=== PATIENT | female | born 1980 | race Hispanic/Latino ===

== ENCOUNTER 2017-09-05 20:56 | Emergency (ER) | payer SELFPAY ==
[~2017-09-05 20:56] MED LIST: ISOVUE-370 76%-LOCM 1 ML ONE
[2017-09-05] MEDS ORDERED: Ondansetron HCl/PF 4 MG/2 ML Vial ONE ×2 (22:41)
--- NOTE | 2017-09-05 23:18 | RAD ---
CHEST TWO VIEWS 09/05/17 HISTORY: Cough. Fever. Sore throat. COMPARISON: None. FINDINGS: Normal cardiac silhouette. Pulmonary vessels and hilum are normal. costophrenic angles are clear. No masses or consolidation. No pneumothorax. Old right rib fractures. IMPRESSION: No acute cardiopulmonary process. POS: [facility]
[2017-09-05 23:25] LABS: ALT (SGPT) 125 U/L (8-55); AST (SGOT) 158 U/L (5-34); Albumin 4.2 g/dL (3.5-5.0); Alkaline Phosphatase 95 U/L (40-150); Anion Gap 19 mmol/L (10-20); BUN (Urea Nitrogen) 9 mg/dL (7.0-18.7); Bilirubin, Total 0.7 mg/dL (0.2-1.2); CK (CPK) 26 U/L (29-168); Calc. Creatinine Clearance 0 mL/min (70-130); Calcium 9.6 mg/dL (7.8-10.44); Carbon Dioxide 23 mmol/L (22-29); Chloride 97 mmol/L (98-107); Estimated GFR-MDRD 81; Globulin 3.8 g/dL (2.4-3.5); Glucose 115 mg/dL (70-105); Lipase 21 U/L (8-78); Potassium 3.8 mmol/L (3.5-5.1); Sodium 135 mmol/L (136-145)
[2017-09-05 23:28] LABS: #Eosinphils 0.1 thou/uL (0.0-0.7); #Lymphocytes 1.8 thou/uL (1.20-3.40); #Monocytes 0.4 thou/uL (0.11-0.59); #Neutrophils 2.6 thou/uL (1.40-6.50); %Basophils 0.5 % (0.0-1.0); %Eosinophils 2.1 % (0.0-10.0); %Lymphocytes 36.1 % (21.0-51.0); %Monocytes 8.6 % (0.0-10.0); %Neutrophils 52.7 % (42.0-75.0); BHCG - Serum Negative (NEGATIVE); Hemoglobin 16.3 g/dL (12.0-16.0); Mean Corpuscular HGB CONC 35.3 g/dL (32.0-36.0); Mean Corpuscular Hemoglobin 36.1 pg (27.0-31.0); Mean Platelet Volume 6.1 fL (7.4-10.4); Platelet Count 249 thou/uL (130-400); Pregs Control Background? CLEAR/WHITE (CLR/WHITE); Pregs Control Bar Appear? YES (CONTROL BAR); RBC Distribution Width 15.1 % (11.5-14.5); Red Blood Cell (RBC) Count 4.51 mill/uL (4.20-5.40); White Blood Cell (WBC) Count 4.9 thou/uL (4.8-10.8)
--- NOTE | 2017-09-06 00:08 | CT ---
EXAM: ABDOMEN CT WITH CONTRAST PELVIC CT WITH CONTRAST 09/05/17 HISTORY: Two weeks of nausea and vomiting. COMPARISON: None. TECHNIQUE: Abdomen and pelvic CT is performed with IV contrast. Enteric contrast was not administered. Coronal r eformatted images are submitted for interpretation. FINDINGS: ABDOMEN CT: Lung bases are clear. Heart size is normal. No pericardial effusion. The descending thoracic aorta an d abdominal aorta have a normal caliber. No periaortic fat stranding. There is an air fluid level adjacent to the gastric cardia measuring 2.9 x 2.5 cm. The adjacent fat d oes not have any induration. A small gastric diverticulum with an air fluid level is favored. Intra and extrahepatic portal vein is patent. Gallbladder is unremarkable. Diffuse hypoattenuation of the liver due to hepatic steatosis. There are no hepatic masses. The spleen, pancreas, and adrenal glands have appropriate enhancement. No gastrohepatic, retrocrural or periportal lymphadenopathy. Gallbladder is unremarkable. No mesenteric mass, lymphadenopathy, free air or free fluid. Hypodensity in the right kidney has an a ttenuation coefficient of 14 Hounsfield units and is likely a simple 1.2 cm cyst. Bilaterally, no obs tructive uropathy. Limited evaluation of the alimentary canal due to lack of oral contrast. Unremarkable gastric mucosa and duodenum. Multiple normal caliber small bowel loops. There is some mild mucosal prominence involv ing multiple proximal jejunal loops. Distal small bowel loops are decompressed. There is fatty infilt ration of the right hemicolon. Normal caliber appendix is noted. No evidence of colonic obstruction. There is short segment narrowing of the proximal sigmoid colon likely representing focal contraction. An apple core lesion cannot be completely excluded. Nonemergent colonoscopy. IMPRESSION: 1. Hepatic steatosis. 2. Right renal cyst. 3. No evidence of obstructive uropathy. 4. No evidence of bowel obstruction. 5. Mild mucosal prominence involving proximal jejunal loops. Correlate for possible enteritis. 6. Normal caliber appendix. 7. Nonspecific fatty infiltration of the right colon mucosa. 8. Questionable apple core lesion in the proximal sigmoid colon. POS: [facility]
== END 2017-09-06 01:04 | disposition home or self-care (01) ==
LOC: ERS 20:56
DX: K52.9 Noninfective gastroenteritis and colitis, unspecified (principal); F41.9 Anxiety disorder, unspecified; F31.9 Bipolar disorder, unspecified; F17.210 Nicotine dependence, cigarettes, uncomplicated
CPT/HCPCS: 71046; 74177; 80053; 82550; 83690; 84703; 85025; 87081; 87430; 87804; 96361; 96374; J2405

== ENCOUNTER 2017-09-23 05:38 | Emergency (ER) | payer SELFPAY ==
--- NOTE | 2017-09-23 07:50 | RAD ---
EXAM: CHEST 2 VIEWS: COMPARISON: 09/06/17. HISTORY: Cough. FINDINGS: Normal cardiac silhouette. The pulmonary vessels and hilum are normal. Costophrenic angles are drew r. No mass. No consolidation. No pneumothorax or osseous abnormalities. IMPRESSION: No acute cardiopulmonary process. POS: [facility]
== END 2017-09-23 06:42 | disposition home or self-care (01) ==
LOC: ERS 05:38
DX: J02.9 Acute pharyngitis, unspecified (principal); R05 Cough; F31.9 Bipolar disorder, unspecified; F41.9 Anxiety disorder, unspecified; F17.210 Nicotine dependence, cigarettes, uncomplicated
CPT/HCPCS: 71046; 87081; 87430; 99406

== ENCOUNTER 2017-12-01 10:33 | Inpatient (IN) | payer SELFPAY ==
[2017-12-01 11:07] LABS: #Monocytes 0.5 thou/uL (0.11-0.59); #Neutrophils 6.7 thou/uL (1.40-6.50); %Basophils 0.5 % (0.0-1.0); %Eosinophils 0.6 % (0.0-10.0); %Lymphocytes 11.8 % (21.0-51.0); %Monocytes 5.8 % (0.0-10.0); %Neutrophils 81.3 % (42.0-75.0); Hemoglobin 16.9 g/dL (12.0-16.0); Mean Corpuscular HGB CONC 34.7 g/dL (32.0-36.0); Mean Corpuscular Hemoglobin 35.5 pg (27.0-31.0); Mean Platelet Volume 6.7 fL (7.4-10.4); Platelet Count 200 thou/uL (130-400); RBC Distribution Width 12.1 % (11.5-14.5); Red Blood Cell (RBC) Count 4.75 mill/uL (4.20-5.40); White Blood Cell (WBC) Count 8.3 thou/uL (4.8-10.8)
[2017-12-01 11:23] LABS: ALT (SGPT) 86 U/L (8-55); AST (SGOT) 113 U/L (5-34); Alkaline Phosphatase 76 U/L (40-150); Anion Gap 17 mmol/L (10-20); BUN (Urea Nitrogen) 10 mg/dL (7.0-18.7); Bilirubin, Total 1.4 mg/dL (0.2-1.2); CK (CPK) 362 U/L (29-168); Calc. Creatinine Clearance 0 mL/min (70-130); Carbon Dioxide 26 mmol/L (22-29); Chloride 86 mmol/L (98-107); Estimated GFR-MDRD 90; Globulin 3.1 g/dL (2.4-3.5); Glucose 134 mg/dL (70-105); Lipase 11 U/L (8-78); Protein, Total 7.1 g/dL (6.0-8.3); Sodium 126 mmol/L (136-145)
[2017-12-01 11:25] LABS: Troponin I Less than 0.010 ng/mL (< 0.028)
[2017-12-01 11:27] LABS: Potassium 2.8 mmol/L (3.5-5.1)
[2017-12-01 11:32] LABS: CKMB 6.7 ng/mL (0-6.6)
[2017-12-01] MEDS ORDERED: Potassium Chloride 40 MEQ in Sodium Chloride 0.9% 500 ML IVPB ONE (11:45)
[2017-12-01] MEDS ORDERED: Ondansetron HCl/PF 4 MG/2 ML Vial ONE (12:04)
--- NOTE | 2017-12-01 12:12 | RAD ---
CHEST 1 VIEW: HISTORY: Chest pain. COMPARISON: Chest radiograph 09/23/17. FINDINGS: Lungs are clear. No pneumothorax or effusion. Cardiac silhouette and mediastinal contours are withi n normal limits. No acute osseous abnormality. Nodular density in the left lung apex is similar, li kina a granuloma. IMPRESSION: No acute intrathoracic abnormality. POS: [facility]
--- NOTE | 2017-12-01 12:31 | CT ---
CT BRAIN WITHOUT CONTRAST: HISTORY: Double vision. Altered mental status. COMPARISON: None. FINDINGS: No acute territorial infarct or hemorrhage. No midline shift or mass effect. Ventricular size and e xtraaxial CSF spaces are normal. There is cortical thinning of the calvarium. IMPRESSION: 1. No acute intracranial abnormality. 2. Intracortical bone resorption of the calvarium can be seen with multiple metabolic abnormalities, the most common is hyperparathyroidism. Clinical correlation is advised. POS: [facility]
[2017-12-01 14:46] LABS: Acetaminophen Less than 6.0 mcg/mL (10.0-30.0); Alcohol Less than 10 mg/dL (Less than 10); Salicylate Less than 8.0 mg/dL (15.0-30.0)
[2017-12-01 15:29] LABS: Troponin I Less than 0.010 ng/mL (< 0.028)
[2017-12-01 15:39] LABS: Thyroid Stimulating Hormone 0.77 uIU/mL (0.35-4.94)
[2017-12-01 16:34] LABS: Bilirubin Negative (Negative); Blood, Urine Negative (Negative); Clarity CLEAR (Clear); Glucose, Urine (Dipstick) Negative (Negative); Leukocyte Moderate (Negative); Nitrite Positive (Negative); Protein, Urine (Dipstick) Negative (Neg-Trace); Specific Gravity, Urine 1.008 (1.002-1.036)
[2017-12-01 16:37] LABS: Pathc Cast-AUWi Flag 0.43 (0-2.49)
[2017-12-01 16:40] LABS: Pregnancy Test - Urine (BHCG) Negative (Negative); Pregu Control Background? CLEAR/WHITE (CLR/WHITE); Pregu Control Bar Appear? YES (CONTROL BAR); Specific Gravity 1.008 (1.002-1.036)
--- NOTE | 2017-12-01 16:50 | PDOC.PN ---
- Subjective Encounter Start Date: 12/01/17 Encounter Start Time: 16:48 Patient seen and examined. Note dictated. - Objective MAR Reviewed: Yes Result Diagrams: 12/01/17 10:57 12/01/17 10:57 Radiology Reviewed by me: Yes (CXR - no infiltrate/edema) EKG Reviewed by me: Yes (ST) Phys Exam - Physical Examination Constitutional: NAD (Anxious) HEENT: PERRLA, moist MMs, sclera anicteric, oral pharynx no lesions Neck: no nodes, no JVD, supple, full ROM Respiratory: no wheezing, no rales, no rhonchi, clear to auscultation bilateral Cardiovascular: RRR, no rub no murmur/rubs/gallops Gastrointestinal: soft, non-tender, no distention, positive bowel sounds mild RUQ tenderness, no rebound/guarding Musculoskeletal: no edema, pulses present Neurological: non-focal, normal sensation, moves all 4 limbs Psychiatric: normal affect, A&O x 3 Skin: no rash Dx/Plan - Plan * Dictated Review of Systems - Review of Systems Constitutional: weakness. negative: fever, chills, sweats, malaise, other Eyes: negative: Pain, Vision Change, Conjunctivae Inflammation, Eyelid Inflammation, Redness, Other ENT: negative: Ear Pain, Ear Discharge, Nose Pain, Nose Discharge, Nose Congestion, Mouth Pain, Mouth Swelling, Throat Pain, Throat Swelling, Other Respiratory: negative: Cough, Dry, Shortness of Breath, Hemoptysis, SOB with Excertion, Pleuritic Pain, Sputum, Wheezing Cardiovascular: negative: chest pain, palpitations, orthopnea, paroxysmal nocturnal dyspnea, edema, light headedness, other Gastrointestinal: Nausea, Vomiting, Diarrhea. negative: Abdominal Pain, Constipation, Melena, Hematochezia, Other Genitourinary: negative: Dysuria, Frequency, Incontinence, Hematuria, Retention , Other Musculoskeletal: negative: Neck Pain, Shoulder Pain, Arm Pain, Back Pain, Hand Pain, Leg Pain, Foot Pain, Other Skin: negative: Rash, Lesions, Jorge, Bruising, Other Neurological: negative: Weakness, Numbness, Incoordination, Change in Speech, Confusion, Seizures, Other - Medications/Allergies Allergies/Adverse Reactions: Allergies Allergy/AdvReac Type Severity Reaction Status Date / Time No Known Allergies Allergy Unverified 12/01/17 11:40
[2017-12-01 16:53] LABS: Bacteria/HPF 1+ HPF (None Seen); Hyaline Casts/LPF NONE SEEN LPF (0-3 Hyaline); RBC/HPF None Seen HPF (0-3); Squamous Epithelial 0-3 HPF (0-3); WBC/HPF None Seen HPF (0-3)
[2017-12-01] MEDS ORDERED: Milk Of Magnesia 30 ML UDCUP PO PRN (16:55)
[2017-12-01] MEDS ORDERED: Ondansetron ODT 4 MG TAB PO PRN (16:55)
[2017-12-01] MEDS ORDERED: Ondansetron HCl/PF 4 MG/2 ML Vial IVP PRN (16:55)
[2017-12-01] MEDS ORDERED: Calcium Carbonate 500 MG ChewTAB PO PRN (16:55)
[2017-12-01] MEDS ORDERED: Lorazepam 0.5 MG TAB PO PRN (16:57)
[2017-12-01] MEDS ORDERED: cloNIDine 0.1 MG TAB PO PRN (16:58)
[2017-12-01] MEDS ORDERED: Diabetic Tussin 200 MG/10 ML UDCUP PO PRN (16:58)
[2017-12-01] MEDS ORDERED: Nicotine 14 MG PATCH TD PRN (16:58)
[2017-12-01] MEDS ORDERED: Loratadine 10 MG TAB PO PRN (16:58)
[2017-12-01 17:40] LABS: Troponin I Less than 0.010 ng/mL (< 0.028)
--- NOTE | 2017-12-01 18:07 | HP ---
DATE OF ADMISSION: 12/01/2017 PRIMARY CARE PHYSICIAN: [facility]. CHIEF COMPLAINT: Nausea and vomiting. HISTORY OF PRESENT ILLNESS: Patient is a 37-year-old female with anxiety, depression, bipolar disord er, followed by [facility] presented to the emergency room with above complaints. The patient recently had eye infection from contact lens that is more or less resolved. The family n oticed that the patient has problems with equilibrium and double vision. She was seen by Ophthalmthierno peña as outpatient. Per Ophthalmology, her double vision was probably not from the contact lens infect ion. He recommended the patient to go to the emergency room. Over the last few days, patient has nausea with several episodes of vomiting. She is not able to eat or drink anything by mouth. She has been feeling generally weak. Her stools are watery. She also had some low grade fever with some right upper quadrant pain. No jaundice, dyspepsia, melena, hemato chezia reported. She denies any sick contacts or travel. In the emergency room, initial vital signs showed temperature 97.7, respiration 18, pulse rate of 122 with a blood pressure 126/83 with O2 saturation 100% on room air. EKG showed sinus tachycardia with out significant ST-T wave changes. Her workup was consistent with abnormal electrolytes. CT brain s howed intracortical bone resorption of the calvarium, which could be due to multiple metabolic abnorm alities, most commonly in hyperparathyroidism. She received 40 mEq of IV potassium, IV fluids with Z ofran in the emergency room. PAST MEDICAL HISTORY: Anxiety, depression, bipolar disorder, followed by [facility]. PAST SURGICAL HISTORY: [place] tooth removal. ALLERGIES: No known drug allergies. CURRENT HOME MEDICATIONS: The patient is on multiple psychotropic medications per [facility], she is unabl e to recall. SOCIAL HISTORY: Patient drinks 2-3 beers almost on a daily basis. She also smokes tobacco on a aren y basis. She has used cannabis in the past. FAMILY HISTORY: Negative for heart disease. REVIEW OF SYSTEMS: Please refer to my progress note. PHYSICAL EXAMINATION: Please refer to my progress note. LABORATORY FINDINGS: Please refer to my progress note. IMPRESSION: 1. Generalized weakness, multifactorial. 2. Nausea with vomiting and diarrhea, probably secondary to infectious gastroenteritis, rule out [place] stridium difficile. 3. Electrolyte imbalance. The patient has hyponatremia, hypophosphatemia, and hypochloremia. 4. Dehydration. 5. Chronic alcoholism. 6. Ongoing tobacco abuse. 7. Anxiety, depression, bipolar disorder. 8. 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 PLAN: The patient will be monitored on the telemetry unit due to electrolyte abnormalities. Stool w orkup will be sent. We will continue IV fluids. Urine drug screen is pending. We will check urine and serum osmolality. Urine test. We will monitor labs closely. Consult Nephrology, Dr. Robbins in a.m. Check vitamin B12 and folic acid due to macrocytosis. We will check TSH, cortisol, ammo cyndi, phosphorus and magnesium as well. We will consult physical therapy due to equilibrium problem. Plan of care was discussed with the patient and the family at the bedside. They stated understanding . The patient will require 2-3 days for stabilization.
--- NOTE | 2017-12-01 18:39 | ULT ---
RIGHT UPPER QUADRANT ULTRASOUND: Indication: Abdominal pain, nausea, vomiting. FINDINGS: There is prominent fatty infiltration of the liver. No gallbladder sludge or stones are evident. No s onographic Carrera sign is reported. No gallbladder wall thickening is evident. Common bile duct measu res 2.0 mm. Visualized aspects of the pancreas are unremarkable. Right kidney measures 9.5 x 4.5 cm. There is a 1.5 cm cyst involving the right mid kidney. IMPRESSION: 1. Prominent fatty infiltration of the liver. 2. Right renal cyst. POS: [facility]
[2017-12-01] MEDS ORDERED: Ergocalciferol 1.25 MG(50,000 UNITS) CAP PO SCH (21:00)
[2017-12-01] MEDS: NS 0.9% w/ 40 MEQ KCL 1,000 ML IV SCH (22:30)
[2017-12-01] MEDS: Folic Acid 1 MG TAB PO SCH (22:31)
[2017-12-01] MEDS: Acetaminophen 325 MG TAB PO PRN (22:42)
--- NOTE | 2017-12-01 23:42 | CON ---
DATE OF CONSULTATION: 12/01/2017 CONSULTING PHYSICIAN: Dr. Galvin. REQUESTING PHYSICIAN: Dr. Hoffmann. REASON FOR CONSULTATION: Electrolyte derangement, possibility of primary hyperparathyroidism. IMPRESSION: Hyponatremia, hypokalemia. This is likely in the context of alcohol abuse. PLAN: 1. Sodium and urine osmolality. 2. We will lean towards IV fluid resuscitation of this patient with normal saline/banana bag. 3. I do not believe that the patient's CAT scan features have anything to do with primary hyperparat hyroidism in this patient. 4. Counseling on the need to discontinue alcohol abuse. HISTORY OF PRESENT ILLNESS: History is that of 37-year-old female patient with significant alcohol p roblem since the age of 13, who presented here with nausea and vomiting, and noted with very low sodi um, very low potassium and CAT scan, incidental finding highly suspicious for primary hyperparathyroi dism. As a result of these findings, decision has been taken to involve Ren[facility] in the management of t his case. PAST MEDICAL HISTORY: Significant for anxiety, depression, bipolar disorder. ALLERGIES: No known drug allergy. MEDICATIONS: Reviewed mellitus psychotropic medications. SOCIAL HISTORY: Significant for alcohol abuse for many years now. FAMILY HISTORY: Not significantly related to presenting illness. REVIEW OF SYSTEMS: As documented in the body of the history. All the other systems reviewed were fo und not to be significantly related to presenting illness. PHYSICAL EXAMINATION: GENERAL: The patient was found to be ill looking, hemodynamically stable. VITAL SIGNS: Afebrile. HEENT: Unremarkable. CARDIOVASCULAR: First and second heart sounds were heard. RESPIRATORY: Clear to auscultation. DIGESTIVE SYSTEM: Benign abdomen, but showed right upper quadrant tenderness. EXTREMITIES: No peripheral edema. SKIN: No new gross rash. LYMPHATICS: No peripheral lymphadenopathy. SUMMARY: A 37-year-old female patient with significant alcohol abuse problem who presented here with significant electrolyte derangements. Thank you for this consultation. We will follow with you.
[2017-12-02] MEDS: Acetaminophen 325 MG TAB PO PRN ×4 (05:21→20:34)
[2017-12-02 05:36] LABS: Albumin 3.1 g/dL (3.5-5.0); Anion Gap 13 mmol/L (10-20); BUN (Urea Nitrogen) 7 mg/dL (7.0-18.7); BUN/Creatinine Ratio 11.67; Calc. Creatinine Clearance 113 mL/min (70-130); Calcium 8.6 mg/dL (7.8-10.44); Carbon Dioxide 22 mmol/L (22-29); Chloride 99 mmol/L (98-107); Estimated GFR-MDRD Greater than 90; Glucose 89 mg/dL (70-105); Phosphorus 3.1 mg/dL (2.3-4.7); Potassium 3.8 mmol/L (3.5-5.1); Sodium 130 mmol/L (136-145)
[2017-12-02 06:04] LABS: Folate (Folic Acid) 12.6 ng/mL (7.0-31.4)
[2017-12-02 08:19] VITALS: BMI 23.1
[2017-12-02] MEDS ORDERED: Cyanocobalamin (Vitamin B-12) 1,000 MCG TAB PO SCH (09:00)
[2017-12-02] MEDS: Cholecalciferol (Vitamin D3) 400 UNITS TAB PO SCH (09:11)
[2017-12-02] MEDS: NS 0.9% w/ 40 MEQ KCL 1,000 ML IV SCH ×3 (09:11→17:49)
[2017-12-02] MEDS: pyridOXINE 50 MG (B6) TAB PO SCH (09:11)
[2017-12-02] MEDS: Calcium Carbonate + Vit D 1 TAB PO SCH ×2 (09:12→14:29)
[2017-12-02] MEDS: Multivit, Therapeutic 1 TAB PO SCH (09:12)
[2017-12-02] MEDS: Folic Acid 1 MG TAB PO SCH (20:33)
--- NOTE | 2017-12-02 21:29 | PDOC.PN ---
- Subjective Encounter Start Date: 12/02/17 Encounter Start Time: 09:00 Patient seen and examined. No new complaints. No overnight events. Feels somewhat better. - Objective Resuscitation Status: Resuscitation Status FULL:Full Resuscitation MAR Reviewed: Yes Vital Signs & Weight: Vital Signs (12 hours) Temp Pulse Resp BP BP BP 12/02/17 20:00 98.2 F 102 H 18 130/84 12/02/17 16:00 98.5 F 86 18 136/88 12/02/17 11:40 98.2 F 84 18 131/87 12/02/17 10:43 97.9 F 78 18 123/78 12/02/17 10:11 105/73 Weight Admit Weight 125 lb 12.8 oz Weight 126 lb 3.2 oz I&O: 12/01/17 12/02/17 12/03/17 06:59 06:59 06:59 Intake Total 720 1722 Balance 720 1722 Result Diagrams: 12/01/17 10:57 12/03/17 03:57 Phys Exam - Physical Examination Constitutional: NAD Neck: no nodes, no JVD Respiratory: no wheezing, no rales, no rhonchi, clear to auscultation bilateral Cardiovascular: RRR, no significant murmur, no rub no heaves Gastrointestinal: soft, non-tender, no distention, positive bowel sounds Musculoskeletal: no edema Neurological: non-focal, normal sensation, moves all 4 limbs Psychiatric: normal affect, A&O x 3 Dx/Plan - Plan DVT proph w/SCDs IMPRESSION: 1. Generalized weakness, multifactorial. 2. Nausea with vomiting and diarrhea, probably secondary to infectious gastroenteritis, rule out Clostridium difficile. 3. Electrolyte imbalance. The patient has hyponatremia, hypophosphatemia, and hypochloremia. 4. Dehydration. 5. Chronic alcoholism. 6. Ongoing tobacco abuse. 7. Anxiety, depression, bipolar disorder. 8. Intracortical bone resorption of the calvarium - probably artifact. PTH level normal PLAN: * cont current IV fluids * Await PT * AM labs * DC planning probably in AM if gait stable * [facility] follow up as outpt Review of Systems - Review of Systems Respiratory: negative: Cough, Dry, Shortness of Breath, Hemoptysis, SOB with Excertion, Pleuritic Pain, Sputum, Wheezing Cardiovascular: negative: chest pain, palpitations, orthopnea, paroxysmal nocturnal dyspnea, edema, light headedness, other - Medications/Allergies Allergies/Adverse Reactions: Allergies Allergy/AdvReac Type Severity Reaction Status Date / Time No Known Allergies Allergy Verified 12/01/17 21:08 Medications: Current Medications Acetaminophen (Tylenol) 325 mg PO Q6H PRN PRN Reason: Headache/Fever or Pain Last Admin: 12/02/17 20:34 Dose: 325 mg Calcium Carbonate (Tums) 1,000 mg PO Q4H PRN PRN Reason: Heartburn or Indigestion Calcium/Vitamin D (Caltrate 600 + Vit D) 1 tab PO BID-WM [facility] Last Admin: 12/02/17 14:29 Dose: 1 tab Cholecalciferol (Vitamin D) 800 units PO DAILY [facility] Last Admin: 12/02/17 09:11 Dose: 800 units Clonidine (Catapres) 0.1 mg PO Q4H PRN PRN Reason: Systolic BP > 180 Ergocalciferol (Drisdol) 1.25 mg PO Q7DAYS [facility] Guaifenesin (Robitussin Sf) 200 mg PO Q4H PRN PRN Reason: Cough Potassium Chloride/Sodium Chloride (Ns 0.9% W/ 40 Meq Kcl) 1,000 mls @ 125 mls/ hr IV .Q8H [facility] Last Admin: 12/02/17 17:49 Dose: 1,000 mls Loratadine (Claritin) 10 mg PO DAILYPRN PRN PRN Reason: Sinus Symptoms Lorazepam (Ativan) 0.5 mg PO Q4H PRN PRN Reason: ASE >9 Magnesium Hydroxide (Milk Of Magnesium) 30 ml PO DAILYPRN PRN PRN Reason: Constipation Multivitamins (Theragran) 1 tab PO DAILY [facility] Last Admin: 12/02/17 09:12 Dose: 1 tab Nicotine (Nicoderm Patch) 14 mg TD Q24HR PRN PRN Reason: Smoking craving Ondansetron HCl (Zofran Odt) 4 mg PO Q6H PRN PRN Reason: Nausea/Vomiting Ondansetron HCl (Zofran) 4 mg IVP Q6H PRN PRN Reason: Nausea/Vomiting Pyridoxine HCl (Vitamin B 6) 50 mg PO DAILY [facility] Last Admin: 12/02/17 09:11 Dose: 50 mg Sodium Chloride (Flush - Normal Saline) 10 ml IVF Q12HR [facility] Last Admin: 12/02/17 20:07 Dose: Not Given Sodium Chloride (Flush - Normal Saline) 10 ml IVF PRN PRN PRN Reason: Saline Flush Thiamine HCl (Thiamine) 100 mg PO HS [facility] Last Admin: 12/02/17 20:33 Dose: 100 mg
[2017-12-03] MEDS: NS 0.9% w/ 40 MEQ KCL 1,000 ML IV SCH (03:52)
[2017-12-03 06:05] LABS: Anion Gap 12 mmol/L (10-20); BUN (Urea Nitrogen) 6 mg/dL (7.0-18.7); BUN/Creatinine Ratio 9.52; Calc. Creatinine Clearance 108 mL/min (70-130); Calcium 8.4 mg/dL (7.8-10.44); Carbon Dioxide 18 mmol/L (22-29); Chloride 108 mmol/L (98-107); Estimated GFR-MDRD Greater than 90; Glucose 81 mg/dL (70-105); Magnesium 1.6 mg/dL (1.6-2.6); Phosphorus 2.6 mg/dL (2.3-4.7); Potassium 4.6 mmol/L (3.5-5.1); Sodium 133 mmol/L (136-145)
[2017-12-03] MEDS: Cholecalciferol (Vitamin D3) 400 UNITS TAB PO SCH (08:08)
[2017-12-03] MEDS: Calcium Carbonate + Vit D 1 TAB PO SCH (08:08)
[2017-12-03] MEDS: Multivit, Therapeutic 1 TAB PO SCH (08:08)
[2017-12-03] MEDS: pyridOXINE 50 MG (B6) TAB PO SCH (08:08)
[2017-12-03 08:18] VITALS: BP 145/87; TEMP 98.5
--- NOTE | 2017-12-03 09:06 | PRG ---
DATE OF SERVICE: 12/02/2017 SUBJECTIVE: The patient seen and examined. OBJECTIVE: VITAL SIGNS: Afebrile with temperature 98.2, pulse 84, respiration rate 18, blood pressure 131/87. HEENT: Unremarkable. Moist oral mucosa. No conjunctival injection or icterus. NECK: Supple. CARDIOVASCULAR: First and second heart sounds were heard. RESPIRATORY: Clear to auscultation. DIGESTIVE: Revealed a benign abdomen. EXTREMITIES: No peripheral edema. SKIN: No new gross rash. LYMPHATICS: No peripheral lymphadenopathy. LABORATORY INVESTIGATIONS: Showed sodium that has improved to 130, potassium resolved, now to 3.8. IMPRESSION: Electrolyte derangements in the context of alcohol abuse. PLAN: 1. Continue supportive measures. 2. Counseling on the need to discontinue alcohol abuse.
--- NOTE | 2017-12-03 22:16 | DIS ---
DATE OF DISCHARGE: 12/03/2017 DISCHARGE DISPOSITION: Home. FOLLOWUP: 1. Follow up with primary care physician at [facility] in 1 week. 2. Follow up with Dr. Galvin as needed. ALLERGIES: No known drug allergies. DISCHARGE MEDICATIONS: 1. Calcium with vitamin D one tablet twice a day. 2. Ergocalciferol 1.25 mg every 7 days. 3. Multivitamin 1 tablet daily. Other home medications were resumed. BRIEF HOSPITAL COURSE: Patient is a 37-year-old female with anxiety, depression, bipolar disorder fo llowed by [facility] presented to the emergency room with nausea, vomiting. Please refer to the history an d physical dated 12/01/2017 for further details. The patient was admitted to the hospital with a diagnosis of generalized weakness, probably secondary to dehydration with electrolyte imbalance. The patient was found to have hyponatremia with sodium 1 26, hypokalemia with potassium 2.8. Her electrolytes have been replaced. In the emergency room, patient underwent CT scan of the brain due to gait imbalance that was negative for acute findings. There was some questionable intracortical bone resorption of the calvarium that can be seen in multiple metabolic abnormalities. Her parathyroid hormone was normal at 52.2. TSH w as normal at 0.77. Cortisol level was 22.8. Vitamin D level was 5.5. She has been started on vitam in D supplementation. Phosphorus and calcium were in normal range. Hyperparathyroidism has been rul ed out. The patient was also evaluated by nephrology, Dr. Galvin. She was extensively counseled to quit alcohol. Lifestyle modification was emphasized. FINAL DIAGNOSES: 1. Generalized weakness, multifactorial. 2. Nausea, vomiting, diarrhea resolved. Probably infectious gastroenteritis. Stool workup was orde red; however, patient did not have any bowel movement. 3. Electrolyte imbalance. The patient had hyponatremia, hypophosphatemia, and hypochloremia. 4. Dehydration. 5. Chronic alcoholism. 6. Ongoing tobacco abuse. 7. Anxiety, depression, bipolar disorder. 8. 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 PTH level was normal. Plan of care was discussed with the patient. She stated understanding. An [facility] followup as outpatie nt is recommended. Primary care physician is advised to follow.
[2017-12-08] MEDS ORDERED: Ergocalciferol 1.25 MG(50,000 UNITS) CAP PO SCH (09:00)
== END 2017-12-03 16:15 | disposition home or self-care (01) | DRG 641 ==
LOC: ERS 10:33 → ERHOLD 14:37 → 2NO 20:39 → T4-A 12-02 10:28
PROVIDERS: ADMIT Internal Medicine; ATTEND Internal Medicine
DX: E86.0 Dehydration (principal); A09 Infectious gastroenteritis and colitis, unspecified; E87.8 Other disorders of electrolyte and fluid balance, not elsewhere classified; E87.1 Hypo-osmolality and hyponatremia; F17.210 Nicotine dependence, cigarettes, uncomplicated; F41.9 Anxiety disorder, unspecified; F31.9 Bipolar disorder, unspecified; F10.20 Alcohol dependence, uncomplicated; E55.9 Vitamin D deficiency, unspecified
CPT/HCPCS: 36415; 70450; 71045; 76705; 80053; 80069; 80307; 81003; 81015; 81025; 82140; 82306; 82533; 82553; 82607; 82746; 83690; 83735; 83930; 83970; 84100; 84443; 84484; 85025; 93005; 96365; 96366; 96375; 99406; A4216; G8978-GP-CK; G8979-GP-CJ; G8987-GO-CI; G8988-GO-CI; G8989-GO-CI; J2405; J3480; J7050

== ENCOUNTER 2017-12-10 20:56 | Emergency (ER) | payer SELFPAY ==
[2017-12-10 21:51] LABS: #Basophils 0.1 thou/uL (0.0-0.2); #Eosinphils 0.1 thou/uL (0.0-0.7); #Lymphocytes 1.9 thou/uL (1.20-3.40); #Monocytes 0.6 thou/uL (0.11-0.59); #Neutrophils 2.6 thou/uL (1.40-6.50); %Basophils 1.1 % (0.0-1.0); %Eosinophils 2.1 % (0.0-10.0); %Lymphocytes 36.4 % (21.0-51.0); %Monocytes 10.6 % (0.0-10.0); %Neutrophils 49.8 % (42.0-75.0); Hemoglobin 14.2 g/dL (12.0-16.0); Mean Corpuscular HGB CONC 35.6 g/dL (32.0-36.0); Mean Corpuscular Hemoglobin 35.9 pg (27.0-31.0); Mean Platelet Volume 5.9 fL (7.4-10.4); Platelet Count 321 thou/uL (130-400); Red Blood Cell (RBC) Count 3.94 mill/uL (4.20-5.40); White Blood Cell (WBC) Count 5.2 thou/uL (4.8-10.8)
[2017-12-10 22:18] LABS: ALT (SGPT) 39 U/L (8-55); AST (SGOT) 32 U/L (5-34); Albumin 3.8 g/dL (3.5-5.0); Alkaline Phosphatase 78 U/L (40-150); Anion Gap 15 mmol/L (10-20); BUN (Urea Nitrogen) 5 mg/dL (7.0-18.7); Bilirubin, Total 0.2 mg/dL (0.2-1.2); Calc. Creatinine Clearance 0 mL/min (70-130); Calcium 9.6 mg/dL (7.8-10.44); Carbon Dioxide 21 mmol/L (22-29); Chloride 107 mmol/L (98-107); Estimated GFR-MDRD Greater than 90; Globulin 3.3 g/dL (2.4-3.5); Glucose 104 mg/dL (70-105); Potassium 3.9 mmol/L (3.5-5.1); Protein, Total 7.1 g/dL (6.0-8.3); Sodium 139 mmol/L (136-145)
== END 2017-12-10 23:00 | disposition home or self-care (01) ==
LOC: ERS 20:56
DX: R20.2 Paresthesia of skin (principal); F31.9 Bipolar disorder, unspecified; F41.9 Anxiety disorder, unspecified; F17.210 Nicotine dependence, cigarettes, uncomplicated
CPT/HCPCS: 36416; 80053; 82550; 84443; 85025; 99284

== ENCOUNTER 2018-02-18 12:32 | Observation (INO) | payer SELFPAY ==
[2018-02-18 13:05] LABS: #Basophils 0.1 thou/uL (0.0-0.2); #Eosinphils 0.1 thou/uL (0.0-0.7); #Lymphocytes 1.6 thou/uL (1.20-3.40); #Monocytes 0.5 thou/uL (0.11-0.59); #Neutrophils 4.5 thou/uL (1.40-6.50); %Basophils 0.9 % (0.0-1.0); %Eosinophils 2.1 % (0.0-10.0); %Lymphocytes 22.9 % (21.0-51.0); %Monocytes 7.1 % (0.0-10.0); %Neutrophils 66.9 % (42.0-75.0); Hemoglobin 18.4 g/dL (12.0-16.0); Mean Corpuscular HGB CONC 34.6 g/dL (32.0-36.0); Mean Corpuscular Hemoglobin 33.5 pg (27.0-31.0); Mean Corpuscular Volume 96.7 fl (81.0-99.0); Mean Platelet Volume 6.6 fL (7.4-10.4); Platelet Count 251 thou/uL (130-400); RBC Distribution Width 12.6 % (11.5-14.5); Red Blood Cell (RBC) Count 5.48 mill/uL (4.20-5.40); White Blood Cell (WBC) Count 6.8 thou/uL (4.8-10.8)
[2018-02-18 13:27] LABS: ALT (SGPT) 29 U/L (8-55); AST (SGOT) 26 U/L (5-34); Albumin 3.9 g/dL (3.5-5.0); Alkaline Phosphatase 81 U/L (40-150); Anion Gap 15 mmol/L (10-20); BUN (Urea Nitrogen) Less than 4 mg/dL (7.0-18.7); Bilirubin, Total 0.5 mg/dL (0.2-1.2); Calc. Creatinine Clearance 0 mL/min (70-130); Calcium 9.6 mg/dL (7.8-10.44); Carbon Dioxide 31 mmol/L (22-29); Chloride 88 mmol/L (98-107); Estimated GFR-MDRD Greater than 90; Globulin 3.4 g/dL (2.4-3.5); Glucose 138 mg/dL (70-105); Protein, Total 7.3 g/dL (6.0-8.3); Sodium 131 mmol/L (136-145)
[2018-02-18 13:39] LABS: Potassium 2.9 mmol/L (3.5-5.1)
[2018-02-18 14:13] LABS: Bilirubin Negative (Negative); Blood, Urine Negative (Negative); Clarity CLEAR (Clear); Glucose, Urine (Dipstick) Negative (Negative); Leukocyte Trace (Negative); Nitrite Negative (Negative); Protein, Urine (Dipstick) Negative (Neg-Trace); Specific Gravity, Urine 1.008 (1.002-1.036)
[2018-02-18 14:16] LABS: Bacteria/HPF 4+ HPF (None Seen); Hyaline Casts/LPF 0-3 HYALINE CAST LPF (0-3 Hyaline); Pathc Cast-AUWi Flag 0.29 (0-2.49); RBC/HPF 0-3 HPF (0-3); Squamous Epithelial 0-3 HPF (0-3)
[2018-02-18] MEDS ORDERED: Ondansetron ODT 4 MG TAB ONE (14:18)
[2018-02-18] MEDS ORDERED: Potassium Chloride 20 MEQ TAB ONE (14:18)
[2018-02-18] MEDS ORDERED: Pantoprazole 40 MG VIAL ONE (14:18)
[2018-02-18 14:23] LABS: Amphetamine Not Detected (NotDetected); Barbiturates Screen Not Detected (NotDetected); Benzodiazepine Screen Not Detected (NotDetected); Cocaine Metabolite Screen Not Detected (NotDetected); Medtox Control Line Valid? VALID (VALID); Medtox Reader # READER 4; Methadone Not Detected (NotDetected); Methamphetamine Not Detected (NotDetected); Opiate Screen Not Detected (NotDetected); Oxycodone Screen Not Detected (NotDetected); Phencyclidine (PCP) Not Detected (NotDetected); THC/Cannabinoid Screen Detected (NotDetected); Tricyclic Screen Not Detected (NotDetected)
--- NOTE | 2018-02-18 14:42 | PDOC.FPRHP ---
- History of Present Illness Chief Complaint: nausea, vomiting, diarrhea History of Present Illness: Valeri Azul is a 37 year old female with a PMH of bipolar disorder, anxiety, and manic depressive disorder who presents to the ED with a two day history of nausea, vomiting, and diarrhea. She states that she has been unable to eat anything for the last few days because she vomiting up everything she eats. She states that she has also had loose, mucous-like stools for the last few days. She was admitted to [facility] 2 months ago with similar symptoms and electrolyte abnormalities. Hypoparathyroidism was ruled out during that admission after an incidental finding on Brain CT. RUQ US was done during the December admission as well and showed prominent fatty infiltration of the liver and a right renal cyst, it was otherwise, unremarkable. During that admission, electrolytes were replaced and patient was discharged home. ED Course: In the ED, the patient received 40 mEq of KCl, 1 L of NS, 40 mg of protonix, and 4 mg Zofran - Allergies/Adverse Reactions Allergies Allergy/AdvReac Type Severity Reaction Status Date / Time No Known Allergies Allergy Verified 12/01/17 21:08 - Home Medications Medication Instructions Recorded Confirmed Type Mirtazapine 30 mg PO HS 12/01/17 02/18/18 History Omeprazole 40 mg PO DAILY 12/01/17 02/18/18 History Sertraline HCl [Zoloft] 100 mg PO BID 12/01/17 02/18/18 History busPIRone HCl [Buspirone HCl] 15 mg PO BID 12/01/17 02/18/18 History risperiDONE [RisperDAL] 3 mg PO BID 12/01/17 02/18/18 History Calcium Carbonate + Vit D 1 tab PO BID-WM tab 12/03/17 02/18/18 Rx [Caltrate 600 + Vit D] Ergocalciferol [Drisdol] 1.25 mg PO Q7DAYS #10 cap 12/03/17 02/18/18 Rx Multivit, Therapeutic [Theragran] 1 tab PO DAILY #1 tab 12/03/17 02/18/18 Rx - History PMHx: Bipolar disorder, manic depression, anxiety PSHx: None FHx: Diabetes and MS in grandfathers Social: patient endorses daily marijuana use, at least 48 oz beer daily, and 1 ppd cig smoking - Review of Systems General: reports: weight/appetite/sleep changes (partner endorses weight loss), fatigue. denies: fever/chills, night sweats Eyes: denies: eye pain, vision changes ENT: denies: nasal congestion, rhinorrhea Respiratory: reports: cough. denies: congestion, shortness of breath, exercise intolerance Cardiovascular: denies: chest pain, palpitation, edema, paroxysmal nocturnal dyspnea, orthopnea Gastrointestinal: reports: vomiting, diarrhea. denies: nausea, constipation, abdominal pain, GI bleeding Genitourinary: denies: incontinence, dysuria, polyuria, discharge Skin: denies: rashes, lesions, jaundice Musculoskeletal: reports: pain (endorses pain over tailbone after a fall a few days ago), tenderness. denies: stiffness, swelling, arthritis/arthralgias Neurological: denies: numbness, syncope, seizure, weakness Psychological: reports: anxiety, depression - Vital signs BP: 106/77 HR: 99 RR: 18 Tmax: 98.8 Pox: 98% on RA Wt: 47 kg - Physical Exam Constitutional: NAD, awake, alert and oriented, well developed HEENT: normocephalic and atraumatic, PERRLA, EOMI, conjunctiva clear, no scleral icterus, grossly normal vision, TM's clear and intact, grossly normal hearing, normal nasal mucosa, MMM, oropharynx clear Neck: supple, FROM, trachea midline, no LAD, no JVD Chest: no-tender to palpation, no lesions Heart: RRR, normal S1/S2, no murmurs/rubs/gallops, pulses present, no edema Lungs: CTAB, no respiratory distress, good air movement, no rales/rhonchi, no wheezing, no retractions Abdomen: soft, non-tender, bowel sounds present, no masses/distention Musculoskeletal: normal structure, normal tone, ROM grossly normal Neurological: no focal deficit, CN II-XII intact, normal sensation Skin: no rash/lesions, good turgor, capillary refill <2 seconds Heme/Lymphatic: no unusual bruising or bleeding, no purpura, no petechia Psychiatric: normal mood and affect, good judgment and insight, intact recent and remote memory FMR H&P: Results - Labs Result Diagrams: 02/19/18 07:06 02/19/18 07:06 Lab results: WBC 6.8 thou/uL (4.8-10.8) 02/18/18 12:51 Hgb 18.4 g/dL (12.0-16.0) H 02/18/18 12:51 Hct 53.0 % (36.0-47.0) H 02/18/18 12:51 MCV 96.7 fl (81.0-99.0) 02/18/18 12:51 Plt Count 251 thou/uL (130-400) 02/18/18 12:51 Neutrophils % 66.9 % (42.0-75.0) 02/18/18 12:51 Sodium 131 mmol/L (136-145) L 02/18/18 12:51 Potassium 2.9 mmol/L (3.5-5.1) L* 02/18/18 12:51 Chloride 88 mmol/L (98-107) L 02/18/18 12:51 Carbon Dioxide 31 mmol/L (22-29) H 02/18/18 12:51 BUN Less than 4 mg/dL (7.0-18.7) L 02/18/18 12:51 Creatinine 0.65 mg/dL (0.6-1.1) 02/18/18 12:51 Glucose 138 mg/dL (70-105) H 02/18/18 12:51 Calcium 9.6 mg/dL (7.8-10.44) 02/18/18 12:51 Total Bilirubin 0.5 mg/dL (0.2-1.2) 02/18/18 12:51 AST 26 U/L (5-34) 02/18/18 12:51 ALT 29 U/L (8-55) 02/18/18 12:51 Alkaline Phosphatase 81 U/L (40-150) 02/18/18 12:51 Serum Total Protein 7.3 g/dL (6.0-8.3) 02/18/18 12:51 Albumin 3.9 g/dL (3.5-5.0) 02/18/18 12:51 Lipase 8 U/L (8-78) 02/18/18 12:53 Urine Ketones Negative mg/dL (Negative) 02/18/18 13:47 Urine Blood Negative (Negative) 02/18/18 13:47 Urine Nitrite Negative (Negative) 02/18/18 13:47 Ur Leukocyte Esterase Trace (Negative) H 02/18/18 13:47 Urine RBC 0-3 HPF (0-3) 02/18/18 13:47 Urine WBC 4-6 HPF (0-3) H 02/18/18 13:47 Ur Squamous Epith Cells 0-3 HPF (0-3) 02/18/18 13:47 Urine Bacteria 4+ HPF (None Seen) H 02/18/18 13:47 FMR H&P: A/P - Problem List (1) Electrolyte abnormality Current Visit: No Status: Acute Code(s): E87.8 - OTH DISORDERS OF ELECTROLYTE AND FLUID BALANCE, NEC (2) Hyponatremia Current Visit: Yes Status: Acute Code(s): E87.1 - HYPO-OSMOLALITY AND HYPONATREMIA (3) Hypokalemia Current Visit: Yes Status: Acute Code(s): E87.6 - HYPOKALEMIA (4) Dehydration Current Visit: No Status: Acute Code(s): E86.0 - DEHYDRATION - Plan 1) Electrolyte Abnormality: - Hx of 2-3 days of nausea, vomiting, and diarrhea - No hx of GI bleeding, no abdominal pain - DDx includes beer drinker potomania, cannabinoid hyperemesis syndrome, gastroenteritis - Hyponatremic, Hypokalemic, Hypochloremic - Checking Mag, Phos, TSH, Osmolality - Checking urine Na and osmolality - Starting LR with 20 mEq KCl at 125 ml/hr - AM BMP - Start daily protonix, PRN zofran and clear liquid diet 2) Substance Abuse - Credit Reporter on potential of marijuana contributing to nausea and vomiting - assistant counsel cessation 3) Alcohol abuse - regular beer drinker, >48 oz/day - ASE protocol - Credit Reporter cessation 4) Psychiatric disorders - Continue home medications 5) Asymptomatic Bacteriuria - Urine culture pending - Asymptomatic, no abx at this time CODE STATUS: FULL CODE Dispo: Obs, medical. Anticipate discharge home after hospital stay less than 2 midnights. FMR H&P: Upper Level - Pertinent history Ms. Lemus is a 37 yo F with PMHx of bipolar d/o, tobacco, alcohol and marijuana abuse who presents with cc of n/v/d for 2-3 days. She is not able to keep anything down. Her partner who is with her states he feels this has been going on to a lesser degree for closer to weeks to months and that she has lost weight since her last hospitalization. She denies any other symptoms including f /c/rashes or sick contacts. - Pertinent findings Gen: alert and oriented HEENT: EOMI, conjunctiva non-injected, MMM CV: RRR, no murmur appreciated RESP: CTAB ABD: soft, nontender, hyperactive bowel sounds EXT: no edema, cap refill < 2 seconds SKIN: no rashes or lesions - Plan Date/Time: 02/18/18 0722 1. Hypokalemia, hyponatremia, hypochloremia: DDX includes beer potomania, cannabinoid hyperemesis syndrome, gastroenteritis, medication effect. Will give IV fluids as above and check additional electrolytes. Follow-up BMP. 2. N/V and resultant dehydration: PRN zofran and CLD to advance as tolerated 3. Substance abuse: Credit Reporter cessation 4. Alcohol abuse: ASE protocol 5. Bipolar d/o: Continue home medications 5. Asymptomatic Bacteriuria: Urine culture pending I, Veronica Castro, have evaluated this patient and agree with findings/plan as outlined by technical support intern resident. Pertinent changes/additions are listed here. Attending Addendum - Attending Addendum Date/Time: 02/18/18 4746 I personally evaluated the patient and discussed the management with Dr. Sargent and Dr. Castro I agree with the History, Examination, Assessment and Plan documented above with any addition or exceptions noted below. Will continue in patient. Start electrolyte replacement. Recently dx with gastritis. Possible etiology for N/V. Reports related to food ingestion. Will treat with scheduled PPI overnight. If not improved can add carafate. Treat symptoms. Awaiting culture for UA. Continue IVF to maintain adequate hydration. Discussed concerns with drug and alcohol abuse. Cameron
[2018-02-18 15:04] LABS: Magnesium 1.8 mg/dL (1.6-2.6); Phosphorus 3.1 mg/dL (2.3-4.7)
[2018-02-18 15:16] LABS: Sodium, Urine Less than 20 mmol/L (Not Available)
[2018-02-18 15:29] LABS: Osmolality, Urine 148 mOsm/kg (300-900)
[2018-02-18] MEDS ORDERED: Acetaminophen 325 MG TAB PO PRN (16:02)
[2018-02-18] MEDS ORDERED: Ondansetron HCl/PF 4 MG/2 ML Vial IVP PRN (16:02)
[2018-02-18] MEDS ORDERED: Magnesium Oxide 400 MG TAB PO SCH (16:30)
[2018-02-18 17:07] LABS: Pregnancy Test - Urine (BHCG) Negative (Negative); Pregu Control Background? CLEAR/WHITE (CLR/WHITE); Pregu Control Bar Appear? YES (CONTROL BAR); Specific Gravity 1.008 (1.002-1.036)
[2018-02-18] MEDS: Potassium Chloride 20 MEQ in Lactated Ringer's 1,000 ML IV SCH ×2 (17:12→17:54)
[2018-02-18 23:39] LABS: Anion Gap 9 mmol/L (10-20); BUN (Urea Nitrogen) Less than 4 mg/dL (7.0-18.7); Calc. Creatinine Clearance 0 mL/min (70-130); Calcium 8.6 mg/dL (7.8-10.44); Carbon Dioxide 31 mmol/L (22-29); Chloride 98 mmol/L (98-107); Estimated GFR-MDRD Greater than 90; Glucose 107 mg/dL (70-105); Potassium 3.3 mmol/L (3.5-5.1); Sodium 135 mmol/L (136-145)
[2018-02-19] MEDS: Potassium Chloride 20 MEQ in Premix Bag 1 BAG IVPB SCH ×2 (04:35→11:33)
--- NOTE | 2018-02-19 06:03 | PDOC.FM ---
- Subjective Subjective: Valeri Lemus seen at bedside this morning. She denies any acute events overnight and has no complaints this morning. She denies having any nausea, vomiting or diarrhea overnight. She denies any fevers. - Objective MAR Reviewed: Yes Vital Signs & Weight: Vital Signs (12 hours) Temp Pulse Resp BP BP Pulse Ox 02/18/18 23:25 99.1 F 84 16 99/62 93 L 02/18/18 19:35 98.9 F 92 16 104/67 104/67 95 I&O: 02/17/18 02/18/18 02/19/18 06:59 06:59 06:59 Intake Total 510 Output Total 100 Balance 410 Result Diagrams: 02/19/18 07:06 02/19/18 07:06 <Eric Sargent - Last Filed: 02/19/18 08:30> - Objective I&O: 02/19/18 02/20/18 02/21/18 06:59 06:59 06:59 Intake Total 2420 Output Total 1025 Balance 1395 Result Diagrams: 02/19/18 07:06 02/19/18 07:06 <Elke Alarcon - Last Filed: 02/20/18 08:56> Phys Exam - Physical Examination Constitutional: NAD HEENT: moist MMs, sclera anicteric Neck: no JVD, supple, full ROM Respiratory: no wheezing, no rales, no rhonchi, clear to auscultation bilateral Cardiovascular: RRR, no significant murmur, no rub Gastrointestinal: soft, non-tender, no distention Musculoskeletal: no edema, pulses present Neurological: non-focal, normal sensation, moves all 4 limbs Psychiatric: normal affect, A&O x 3 <Eric Sargent - Last Filed: 02/19/18 08:30> Dx/Plan (1) Electrolyte abnormality Code(s): E87.8 - OTH DISORDERS OF ELECTROLYTE AND FLUID BALANCE, NEC Status: Acute (2) Hyponatremia Code(s): E87.1 - HYPO-OSMOLALITY AND HYPONATREMIA Status: Acute (3) Hypokalemia Code(s): E87.6 - HYPOKALEMIA Status: Acute (4) Dehydration Code(s): E86.0 - DEHYDRATION Status: Acute (5) Bacteriuria Code(s): R82.71 - BACTERIURIA Status: Acute - Plan Plan: 1) Electrolyte Abnormality: - Hx of 2-3 days of nausea, vomiting, and diarrhea - No hx of GI bleeding, no abdominal pain - DDx includes beer drinker potomania, cannabinoid hyperemesis syndrome, gastroenteritis - Hyponatremic, Hypokalemic, Hypochloremic - Checking Mag, Phos, TSH, Osmolality - Checking urine Na and osmolality - Starting LR with 20 mEq KCl at 125 ml/hr - Start daily protonix, PRN zofran and clear liquid diet - Na, K, and Cl trending in the right direction - Urine studies (low serum osmolality, low urine Na) suggest GI losses to be the cause of hyponatremia 2) Substance Abuse - Access Developer on potential of marijuana contributing to nausea and vomiting - college and career counselor cessation 3) Alcohol abuse - regular beer drinker, >48 oz/day - [facility] protocol - Access Developer cessation 4) Psychiatric disorders - Continue home medications 5) Asymptomatic Bacteriuria - Urine culture growing E. coli >100,000 CFU - Starting ceftriaxone, will likely go home on coarse of PO Abx <Eric Sargent - Last Filed: 02/19/18 08:30> (1) Electrolyte abnormality Code(s): E87.8 - OTH DISORDERS OF ELECTROLYTE AND FLUID BALANCE, NEC Status: Acute (2) Hyponatremia Code(s): E87.1 - HYPO-OSMOLALITY AND HYPONATREMIA Status: Acute (3) Hypokalemia Code(s): E87.6 - HYPOKALEMIA Status: Acute (4) Dehydration Code(s): E86.0 - DEHYDRATION Status: Acute <Elke Alarcon - Last Filed: 02/20/18 08:56> Attending Addendum - Attending Addendum Date/Time: 02/19/18 [id number] I personally evaluated the patient and discussed the management with Dr. Ricketts and Dr. Sargent I agree with the History, Examination, Assessment and Plan documented above with any addition or exceptions noted below. Much improved overnight. No N/V. Abdominal pain resolved. Continue outpatient PPI for gastritis. Unsure H. plyori status. Test ordered. Needs outpatient GI follow up. Ok for d/c this afternoon. ABrayMD <Elke Alarcon - Last Filed: 02/20/18 08:56>
[2018-02-19 07:11] LABS: #Eosinphils 0.2 thou/uL (0.0-0.7); #Lymphocytes 1.5 thou/uL (1.20-3.40); #Monocytes 0.4 thou/uL (0.11-0.59); #Neutrophils 4.9 thou/uL (1.40-6.50); %Basophils 0.4 % (0.0-1.0); %Eosinophils 2.7 % (0.0-10.0); %Lymphocytes 21.1 % (21.0-51.0); %Monocytes 6.2 % (0.0-10.0); %Neutrophils 69.5 % (42.0-75.0); Hemoglobin 15.4 g/dL (12.0-16.0); Mean Corpuscular HGB CONC 34.1 g/dL (32.0-36.0); Mean Corpuscular Hemoglobin 33.5 pg (27.0-31.0); Mean Corpuscular Volume 98.2 fL (78.0-98.0); Mean Platelet Volume 6.6 fL (7.4-10.4); Platelet Count 202 thou/uL (130-400); RBC Distribution Width 12.5 % (11.5-14.5); Red Blood Cell (RBC) Count 4.59 mill/uL (4.20-5.40)
[2018-02-19 07:31] LABS: Anion Gap 10 mmol/L (10-20); BUN (Urea Nitrogen) Less than 4 mg/dL (7.0-18.7); Calc. Creatinine Clearance 0 mL/min (70-130); Calcium 8.9 mg/dL (7.8-10.44); Carbon Dioxide 27 mmol/L (22-29); Chloride 101 mmol/L (98-107); Estimated GFR-MDRD Greater than 90; Glucose 110 mg/dL (70-105); Magnesium 1.5 mg/dL (1.6-2.6); Potassium 3.4 mmol/L (3.5-5.1); Sodium 135 mmol/L (136-145)
[2018-02-19] MEDS: Potassium Chloride 20 MEQ in Lactated Ringer's 1,000 ML IV SCH ×2 (07:56→10:05)
[2018-02-19] MEDS ORDERED: risperiDONE 3 MG TAB PO SCH (09:00)
[2018-02-19] MEDS ORDERED: Ergocalciferol 1.25 MG(50,000 UNITS) CAP PO SCH (09:00)
[2018-02-19] MEDS ORDERED: Multivit, Therapeutic 1 TAB PO SCH (09:00)
[2018-02-19] MEDS ORDERED: cefTRIAXone\\ROCEPHIN 1 GM in Sodium Chloride 0.9% 100 ML IVPB SCH (09:00)
[2018-02-19] MEDS ORDERED: busPIRone HCl 5 MG TAB PO SCH (09:00)
[2018-02-19] MEDS ORDERED: Pantoprazole 40 MG VIAL IVP SCH (09:00)
[2018-02-19] MEDS ORDERED: Magnesium Oxide 400 MG TAB PO SCH ×2 (09:00→11:15)
[2018-02-19] MEDS ORDERED: Potassium Chloride 20 MEQ TAB PO SCH (11:15)
[2018-02-19 12:18] VITALS: BP 120/80; TEMP 98.4
[2018-02-19] MEDS ORDERED: Calcium Carbonate + Vit D 1 TAB PO SCH (17:00)
[2018-02-19] MEDS ORDERED: Mirtazapine 30 MG TAB PO SCH (21:00)
--- NOTE | 2018-02-20 05:57 | DIS-2 ---
DATE OF ADMISSION: 02/18/2018 DATE OF DISCHARGE: 02/19/2018 RESIDENT: Eric Sargent MD ADMITTING ATTENDING: Dr. Elke Alarcon. DISCHARGE ATTENDING: Dr. Elke Alarcon. CONSULTATIONS: None. PROCEDURE: Urine culture on 02/18/2018, showed presumptive E. coli with greater than 100,000 colony forming units. PRIMARY DIAGNOSIS: Electrolyte abnormalities. SECONDARY DIAGNOSES: 1. Hyponatremia. 2. Hypochloremia. 3. Hypokalemia. 4. Urinary tract infection. 5. Nausea and vomiting. RESUME HOME MEDICATIONS: 1. Risperidone 3 mg p.o. b.i.d. 2. Sertraline hydrochloride 100 mg p.o. b.i.d. 3. Buspirone hydrochloride 15 mg p.o. b.i.d. 4. Mirtazapine 30 mg p.o. at bedtime. 5. Caltrate 600 plus vitamin D 1 tab p.o. b.i.d. with meals. 6. Ergocalciferol 1.25 mg p.o. q.7 days. 7. Theragran 1 tablet p.o. daily. NEW HOME MEDICATIONS. 1. Keflex 500 mg p.o. b.i.d. for 3 days. 2. Probiotic 1 cap p.o. daily. 3. Protonix 40 mg p.o. daily. HISTORY OF PRESENT ILLNESS AND HOSPITAL COURSE: Valeri Lemus is a 37-year-old female with a [facility] medical history of bipolar disorder, anxiety, and manic depressive disorder, who presented to the ED with a 2-day history of nausea, vomiting, and diarrhea. She states that she had been unable to ea t anything for the last few days because she vomited everything that she eats. States that she has a lso been having loose mucus like stools for the last several days. She was admitted to [facility] 2 months ago with similar symptoms and electrolyte abnormalities. Hypoparathyroidism was ruled o ut during that admission after an incidental finding was found on brain CT. Right upper quadrant ult rasound was done at that admission in December as well and showed prominent fatty infiltration of the li shahid and a right renal cyst was otherwise unremarkable. During that admission, electrolytes were repl aced and the patient was discharged home. Before this admission, the patient received 40 mEq of pota ssium chloride, 1 liter of normal saline, 40 mg of Protonix, and 4 mg of Zofran. The patient was doi ng better by the time, the admitting team came to examine the patient. The patient endorsed greater than 48 ounces of beer drinking daily, 1 pack per day of cigarette smoking and endorses daily use of marijuana. The patient was admitted for her electrolyte abnormalities. She was hyponatremic at 131 and hypokalemic at 2.9, hypochloremic at 88, carbon dioxide was 31. Urine studies pointed towards GI losses being the cause of the hyponatremia. The patient was started on IV fluids, lactated Ringer's with 20 mEq of potassium chloride at 125 mL in an outpatient. The patient was given p.r.n. Zofran a nd clear liquid diet as well as daily Protonix. Over the first day, she was also put on BRENDEN protocol for alcohol abuse. Over the first night of her admission into the morning, the patient had no episo clifford of nausea or vomiting. Denied any abdominal pain and denied any diarrhea and she required no Zof ran. On 02/19/2018, electrolytes are trending in the right direction. Sodium was 135, potassium 3.3 , chloride was 98 and the patient was feeling much better. The patient was cleared for discharge by the medical team on 02/19/2018 with instructions to establish care and followup with primary care pro vider. Patient stated that she already had an appointment with [facility]. H. pylori tests were ta sammie before the patient was discharged from hospital, the patient will be notified of H. pylori test r esults, it is likely that the cause of her nausea, vomiting, and electrolyte abnormalities were from a gastroenteritis, although beer potomania and cannabinoid hyperemesis syndrome could also be contrib uting. DISPOSITION: Stable. The patient should do well if she decreases alcohol intake and decreases marij uana use as well as follows up with primary care provider. The patient will be notified of her H. py chavez test results, that way she can take those to her newly established primary care provider. DISCHARGE INSTRUCTIONS: 1. Location: Home. 2. Diet: Regular diet. 3. Activity: As tolerated. 4. Followup: Follow up with [facility] as the patient has made an appointment with him already in a couple of days.
== END 2018-02-19 15:06 | disposition home or self-care (01) ==
LOC: ERS 12:32 → 3SE 14:21
PROVIDERS: ADMIT Student in an Organized Health Care Education/Training Program; ATTEND Student in an Organized Health Care Education/Training Program
DX: E87.1 Hypo-osmolality and hyponatremia (principal); E87.6 Hypokalemia; E87.8 Other disorders of electrolyte and fluid balance, not elsewhere classified; E86.0 Dehydration; F31.9 Bipolar disorder, unspecified; F41.9 Anxiety disorder, unspecified; F17.210 Nicotine dependence, cigarettes, uncomplicated; F12.10 Cannabis abuse, uncomplicated; F10.10 Alcohol abuse, uncomplicated; N39.0 Urinary tract infection, site not specified; Z79.899 Other long term (current) drug therapy
CPT/HCPCS: 36415; 80048; 80053; 80306; 80307; 81003; 81015; 81025; 83690; 83735; 83930; 83935; 84100; 84300; 84443; 85025; 87086; 87186; 87338; 96361; 96365; 96366; 96374; 96375; 96376; C9113; G0378; J0696; J3480; J7050; J7120; Q0162

== ENCOUNTER 2018-03-17 21:01 | Observation (INO) | payer SELFPAY ==
[2018-03-17 22:28] LABS: #Basophils 0.1 thou/uL (0.0-0.2); #Eosinphils 0.1 thou/uL (0.0-0.7); #Lymphocytes 1.9 thou/uL (1.20-3.40); #Monocytes 0.9 thou/uL (0.11-0.59); #Neutrophils 7.2 thou/uL (1.40-6.50); %Basophils 0.9 % (0.0-1.0); %Eosinophils 1.1 % (0.0-10.0); %Lymphocytes 18.5 % (21.0-51.0); %Monocytes 8.5 % (0.0-10.0); %Neutrophils 71.1 % (42.0-75.0); Hemoglobin 19.1 g/dL (12.0-16.0); Mean Corpuscular HGB CONC 34.7 g/dL (32.0-36.0); Mean Corpuscular Hemoglobin 31.6 pg (27.0-31.0); Mean Corpuscular Volume 91.1 fL (78.0-98.0); Mean Platelet Volume 6.9 fL (7.4-10.4); Platelet Count 280 thou/uL (130-400); RBC Distribution Width 12.6 % (11.5-14.5); Red Blood Cell (RBC) Count 6.05 mill/uL (4.20-5.40); White Blood Cell (WBC) Count 10.1 thou/uL (4.8-10.8)
[2018-03-17 22:48] LABS: ALT (SGPT) 33 U/L (8-55); AST (SGOT) 27 U/L (5-34); Albumin 4.3 g/dL (3.5-5.0); Alkaline Phosphatase 79 U/L (40-150); Anion Gap 20 mmol/L (10-20); BUN (Urea Nitrogen) 5 mg/dL (7.0-18.7); Bilirubin, Total 1.1 mg/dL (0.2-1.2); Calc. Creatinine Clearance 0 mL/min (70-130); Calcium 10.2 mg/dL (7.8-10.44); Carbon Dioxide 32 mmol/L (22-29); Estimated GFR-MDRD Greater than 90; Globulin 3.4 g/dL (2.4-3.5); Glucose 94 mg/dL (70-105); Lipase 5 U/L (8-78); Protein, Total 7.7 g/dL (6.0-8.3); Sodium 123 mmol/L (136-145)
[2018-03-17 22:51] LABS: Chloride 73 mmol/L (98-107); Potassium 2.3 mmol/L (3.5-5.1)
[2018-03-17] MEDS ORDERED: Pot Chloride/Pot Bicarb/Cit Ac 25 mEq Effervescent Tablet ONE (23:30)
[2018-03-17 23:46] LABS: BHCG - Serum Negative (NEGATIVE); Pregs Control Background? CLEAR/WHITE (CLR/WHITE); Pregs Control Bar Appear? YES (CONTROL BAR)
[2018-03-18] MEDS ORDERED: Ondansetron HCl/PF 4 MG/2 ML Vial ONE (00:05)
[2018-03-18] MEDS ORDERED: Pot Chloride/Pot Bicarb/Cit Ac 25 mEq Effervescent Tablet ONE (00:05)
[2018-03-18] MEDS ORDERED: Pantoprazole 40 MG VIAL ONE (00:05)
[2018-03-18] MEDS ORDERED: Ondansetron HCl/PF 4 MG/2 ML Vial IVP PRN ×2 (02:02→13:58)
[2018-03-18] MEDS ORDERED: Ondansetron ODT 4 MG TAB SL PRN (02:02)
[2018-03-18 02:03] VITALS: BMI 18.8
[2018-03-18] MEDS: Lactated Ringer's 1,000 ML IV SCH ×3 (02:25→11:26)
[2018-03-18] MEDS: Potassium Bicarbonate/Cit Ac 25 MEQ TAB PO SCH ×2 (05:25→08:18)
[2018-03-18] MEDS: Metoclopramide HCl 10 MG/2 ML VIAL IVP SCH ×2 (05:26→11:24)
[2018-03-18 06:34] LABS: #Basophils 0.1 thou/uL (0.0-0.2); #Eosinphils 0.1 thou/uL (0.0-0.7); #Lymphocytes 1.9 thou/uL (1.20-3.40); #Monocytes 0.7 thou/uL (0.11-0.59); #Neutrophils 5.7 thou/uL (1.40-6.50); %Basophils 0.7 % (0.0-1.0); %Eosinophils 1.7 % (0.0-10.0); %Lymphocytes 22.4 % (21.0-51.0); %Monocytes 7.9 % (0.0-10.0); %Neutrophils 67.3 % (42.0-75.0); Hemoglobin 17.4 g/dL (12.0-16.0); Mean Corpuscular HGB CONC 35.5 g/dL (32.0-36.0); Mean Corpuscular Hemoglobin 32.6 pg (27.0-31.0); Mean Corpuscular Volume 91.9 fL (78.0-98.0); Mean Platelet Volume 6.8 fL (7.4-10.4); Platelet Count 228 thou/uL (130-400); RBC Distribution Width 12.5 % (11.5-14.5); Red Blood Cell (RBC) Count 5.34 mill/uL (4.20-5.40); White Blood Cell (WBC) Count 8.4 thou/uL (4.8-10.8)
[2018-03-18 06:40] LABS: ALT (SGPT) 28 U/L (8-55); AST (SGOT) 22 U/L (5-34); Albumin 3.8 g/dL (3.5-5.0); Alkaline Phosphatase 70 U/L (40-150); Anion Gap 16 mmol/L (10-20); BUN (Urea Nitrogen) 4 mg/dL (7.0-18.7); Bilirubin, Total 0.9 mg/dL (0.2-1.2); Calc. Creatinine Clearance 86 mL/min (70-130); Calcium 9.4 mg/dL (7.8-10.44); Carbon Dioxide 37 mmol/L (22-29); Chloride 76 mmol/L (98-107); Estimated GFR-MDRD Greater than 90; Globulin 2.8 g/dL (2.4-3.5); Glucose 99 mg/dL (70-105); Magnesium 1.4 mg/dL (1.6-2.6); Potassium 3.3 mmol/L (3.5-5.1); Protein, Total 6.6 g/dL (6.0-8.3); Sodium 126 mmol/L (136-145)
--- NOTE | 2018-03-18 07:42 | RAD ---
TWO VIEWS OF THE ABDOMEN AND UPRIGHT VIEW OF THE CHEST: COMPARISON: None. HISTORY: Vomiting and oral intolerance. FINDINGS: Supine and upright views of the abdomen and upright view of the chest show nonspecific, nonrestricted bowel gas pattern. No free air or air fluid levels are seen on upright examination. The cardiomediastinal silhouette is normal in size. There is no evidence of consolidation, mass, or pleural effusion. IMPRESSION: 1. No evidence of acute cardiopulmonary disease. 2. No evidence of bowel obstruction. POS: [facility]
[2018-03-18] MEDS ORDERED: Ondansetron ODT 4 MG TAB PO PRN (13:58)
[2018-03-18] MEDS ORDERED: Acetaminophen 500 MG TAB PO PRN (13:58)
[2018-03-18] MEDS: Sodium Chloride 0.9% 1,000 ML IV SCH ×2 (15:10→22:08)
[2018-03-18] MEDS: Calcium Carbonate + Vit D 1 TAB PO SCH (16:43)
[2018-03-18] MEDS: busPIRone HCl 5 MG TAB PO SCH (22:05)
[2018-03-18] MEDS: Famotidine 20 MG TAB PO SCH (22:05)
[2018-03-18] MEDS: risperiDONE 3 MG TAB PO SCH (22:05)
[2018-03-19] MEDS: Sodium Chloride 0.9% 1,000 ML IV SCH ×2 (01:13→13:09)
--- NOTE | 2018-03-19 04:19 | HP ---
DATE OF ADMISSION: 03/18/2018 PRIMARY CARE PROVIDER: [facility]. CHIEF COMPLAINT: Nausea, vomiting, and diarrhea. HISTORY OF PRESENT ILLNESS: This is a 37-year-old female who presents to [facility] Emergency Department complaining of nausea, vomiting, and diarrhea in the last 24 hours. The patie nt denied any recent travel history exposure, sick contacts, recent surgeries or change to her dietar y habits. The patient was notably admitted with identical presentation 02/18/2018 through 02/19/2018 with an initial diagnosis of multiple electrolyte abnormalities as well as a presumptive Escherichia coli urinary tract infection. The patient was also noted positive for cannabis and alcohol use. Th e patient has a significant history of anxiety and bipolar disorder with intermittent slava. The pat ient states she has been on consistent with her chronic psychiatric medications. The patient underwe nt extensive evaluation during the admission in 01/2018 and receiving IV fluids as well as Protonix a nd Zofran as well as electrolyte replacement, overall stabilizing within 24 hours. The patient was a lso noted hyponatremic with hypochloremia and elevated carbon dioxide level. After IV hydration and electrolyte replacement, patient was released home. The patient returns with similar presentation, b ut denies any hematemesis, melena or dysuria. The patient does state that she fell at home on a conc rete floor landing on her tailbone with some residual pain at the time of evaluation. The patient st ates she lost her footing and fell to the right side and her buttock region, but was able to stand an d utilize both lower extremities. The patient denied any loss of consciousness. In the emergency ro om, the patient underwent general evaluation, receiving lactated ringers, potassium chloride, intrave nous Protonix, and Zofran. PAST MEDICAL HISTORY: 1. Alcohol abuse. 2. Tobacco abuse. 3. Cannabis use. 4. Anxiety disorder. 5. Bipolar disorder. CURRENT MEDICATIONS: 1. Zoloft 100 mg p.o. b.i.d. 2. Risperdal 3 mg p.o. b.i.d. 3. Multivitamin 1 tab p.o. daily. 4. Calcium carbonate with vitamin D 1500 mg/400 units one tab p.o. b.i.d. 5. BuSpar 15 mg p.o. b.i.d. ALLERGIES: No known drug allergies. FAMILY HISTORY: Positive for diabetes and myocardial infarction in her grandfathers. SOCIAL HISTORY: The patient resides in [place], [place]. Accompanied by her significant other. Daily u se of marijuana. Three to six beers daily. One pack of cigarettes daily. REVIEW OF SYSTEMS: The following complete review of systems was negative, unless otherwise mentioned in the HPI or below: Constitutional: Weight loss or gain, ability to conduct usual activities. Sk in: Rash, itching. Eyes: Double vision, pain. ENT/Mouth: Nose bleeding, neck stiffness, pain, ten derness. Cardiovascular: Palpitations, dyspnea on exertion, orthopnea. Respiratory: Shortness of breath, wheezing, cough, hemoptysis, fever or night sweats. Gastrointestinal: Poor appetite, abdomi nal pain, heartburn, nausea, vomiting, constipation, or diarrhea. Genitourinary: Urgency, frequency , dysuria, nocturia. Musculoskeletal: Pain, swelling. Neurologic/Psychiatric: Anxiety, depression . Allergy/Immunologic: Skin rash, bleeding tendency. Otherwise negative except as stated per HPI. PHYSICAL EXAMINATION: VITAL SIGNS: Currently, blood pressure 87/48, pulse 71, respiratory rate 14, temperature 97.8 degree s Fahrenheit, O2 saturation 95% on room air. GENERAL APPEARANCE: This is a 37-year-old female, alert and oriented x3, pleasant, conversa nt, in no acute distress. HEENT: Pupils are equal, round, and reactive to light and accommodation. Extraocular muscles are in tact. No scleral icterus, no conjunctival injection. Nares patent. OP is clear. NECK: Supple, no cervical adenopathy, no thyromegaly, no carotid bruits, no JVD appreciated. Cervic al spine with full active and passive range of motion. No meningeal signs noted. CHEST: Lungs are clear to auscultation bilaterally. CARDIOVASCULAR: S1, S2, without noted murmur, rub, or gallop. ABDOMEN: Rounded, soft, nontender, nondistended. Bowel sounds are positive in all four quadrants. There is no hepatosplenomegaly, no abdominal bruits, no rebound or guarding appreciated. EXTREMITIES: Warm and dry with fair turgor. No clubbing, cyanosis or asymmetric edema appreciated. Pulses palpable distally at the dorsalis pedis, posterior tibial, and popliteal arteries bilaterally . Positive tenderness to palpation in the right piriformis and gluteal region of the right. Mild te nderness to palpation over the sacral region. NEUROLOGIC: Cranial nerves II-XII are grossly intact. No focal or lateralizing signs appreciated. PERTINENT LABORATORY AND X-RAY FINDINGS: Sodium 123, potassium 2.3, chloride 73, CO2 of 32, BUN 5, c reatinine 0.62, glucose 94, calcium 10.2, magnesium 1.4. LFTs within normal limits. Serum beta hCG negative. CBC showed a white blood cell count of 10.1, hemoglobin 19, hematocrit 55, platelet count 280 with 71% neutrophils. Acute abdominal series dated 03/17/2018 showed no acute cardiopulmonary pr ocess or evidence of bowel obstruction. ASSESSMENT AND PLAN: 1. Nausea and vomiting. Improved with IV fluid hydration and antiemetics. We will continue Zofran 4 mg IV q.6 hours p.r.n. We will continue to encourage increased free water intake of water as clini beckie tolerated. Exact etiology unclear; however, suspicion for multiple factors including Cannabis abuse and alcohol abuse. 2. Abdominal pain. Generalized abdominal pain noted; however, no specific identifiable source. Con tinue supportive management. Toradol 30 mg IV q.6 hours p.r.n. Pepcid 20 mg p.o. b.i.d. 3. Dehydration. We will continue intravenous normal saline at 100 mL per hour. Encourage increased free water intake orally. 4. Hypokalemia. We will continue potassium supplementation 40 mEq b.i.d. Repeat potassium level in the a.m. 5. Hyponatremia. Acute on chronic after review of the electronic medical record. We will continue normal saline as outlined previously. Suspect component of alcohol abuse. 6. Cannabis abuse. We will offer resources regarding cessation programs. Suspect element of cannab inoid hyperemesis syndrome. 7. Alcohol abuse. We will offer cessation resources prior to discharge. 8. Prophylaxis. Sequential compression devices while in bed. Pepcid 20 mg p.o. b.i.d. 9. Code status is FULL. Surrogate medical decision maker is patient's significant other, Donta smith.
[2018-03-19 05:41] LABS: Band 7 % (5-11); Eosinophils 5 % (0-10); Hemoglobin 14.6 g/dL (12.0-16.0); Lymphocytes 37 % (21-51); MDiff Complete? YES; Mean Corpuscular HGB CONC 34.8 g/dL (32.0-36.0); Mean Corpuscular Hemoglobin 32.8 pg (27.0-31.0); Mean Corpuscular Volume 94.2 fL (78.0-98.0); Metamyelocyte 1 % (0-0); Monocytes 2 % (0-10); Neutrophil 46 % (42-75); PLT Morphology Comment Appears Adequate; Platelet Count 183 thou/uL (130-400); RBC Distribution Width 12.4 % (11.5-14.5); Reactive Lymphocytes 2 % (0-10); Red Blood Cell (RBC) Count 4.46 mill/uL (4.20-5.40); White Blood Cell (WBC) Count 5.8 thou/uL (4.8-10.8)
[2018-03-19 05:52] LABS: ALT (SGPT) 38 U/L (8-55); AST (SGOT) 36 U/L (5-34); Alkaline Phosphatase 58 U/L (40-150); Anion Gap 8 mmol/L (10-20); BUN (Urea Nitrogen) Less than 4 mg/dL (7.0-18.7); Bilirubin, Total 0.4 mg/dL (0.2-1.2); Calc. Creatinine Clearance 100 mL/min (70-130); Calcium 8.3 mg/dL (7.8-10.44); Carbon Dioxide 34 mmol/L (22-29); Chloride 94 mmol/L (98-107); Estimated GFR-MDRD Greater than 90; Glucose 113 mg/dL (70-105); Magnesium 1.5 mg/dL (1.6-2.6); Sodium 134 mmol/L (136-145)
[2018-03-19 05:58] LABS: Potassium 2.3 mmol/L (3.5-5.1)
[2018-03-19] MEDS ORDERED: Magnesium 2 GM/NS 0.9% 100 ML 2 GM in Premix Bag 1 BAG IVPB SCH (07:00)
[2018-03-19] MEDS ORDERED: Potassium Chloride 20 MEQ in Premix Bag 1 BAG IVPB SCH (08:00)
[2018-03-19 08:10] VITALS: BP 103/68
[2018-03-19] MEDS: Calcium Carbonate + Vit D 1 TAB PO SCH ×2 (08:14→17:10)
[2018-03-19] MEDS: Potassium Chloride 20 MEQ TAB PO SCH ×3 (08:14→12:16)
[2018-03-19] MEDS: busPIRone HCl 5 MG TAB PO SCH (08:14)
[2018-03-19] MEDS: Famotidine 20 MG TAB PO SCH (08:15)
[2018-03-19 08:40] VITALS: TEMP 97.9
[2018-03-19] MEDS ORDERED: Multivit, Therapeutic 1 TAB PO SCH (09:00)
[2018-03-19] MEDS ORDERED: Saccharomyces boulardii 250 MG CAP PO SCH (09:00)
[2018-03-19] MEDS: risperiDONE 3 MG TAB PO SCH (10:30)
[2018-03-19 11:36] LABS: Anion Gap 12 mmol/L (10-20); BUN (Urea Nitrogen) Less than 4 mg/dL (7.0-18.7); Calc. Creatinine Clearance 102 mL/min (70-130); Calcium 8.7 mg/dL (7.8-10.44); Carbon Dioxide 28 mmol/L (22-29); Chloride 98 mmol/L (98-107); Estimated GFR-MDRD Greater than 90; Glucose 114 mg/dL (70-105); Potassium 3.4 mmol/L (3.5-5.1); Sodium 135 mmol/L (136-145)
--- NOTE | 2018-03-19 17:38 | DIS ---
DATE OF ADMISSION: 03/18/2018 DATE OF DISCHARGE: 03/19/2018 DISCHARGE DIAGNOSES: 1. Nausea and vomiting, multifactorial, resolved. 2. Hypokalemia secondary to #1. 3. Abdominal pain secondarily to #1, resolved. 4. Dehydration, resolved. 5. Hyponatremia, improved. 6. Cannabis abuse. 7. Alcohol abuse. 8. Tobacco abuse. CONSULTATIONS: None. PERTINENT LAB AND X-RAY FINDINGS: Sodium ranged between 123-134, potassium ranged between 2.3-3.3, c hloride ranged between 73-94, magnesium level ranged between 1.4-1.5, AST ranged between 22-36, ALT r anged between 28-38. Serum beta hCG negative. CBC showed a hemoglobin ranging between 14.6-19.1. A cute abdominal series dated 03/17/2018 showed no acute intra-abdominal process. HOSPITAL COURSE: The patient was observed on the medical floor after initially presenting with nause a, vomiting, and diarrhea. The patient underwent general evaluation including metabolic screening wi th multiple electrolyte disturbances including hyponatremia, hypochloremia, elevated carbon dioxide l evel and hypokalemia. The patient was placed on IV fluids as well as potassium supplementation and m onitored for clinical response. The patient also received antiemetics including Zofran intravenously with resolution of her nausea. The patient was tolerating regular oral intake by the time of discha rge and her diarrhea had resolved. The patient's presentation likely multifactorial with components of cannabis abuse and possible cannabinoid hyperemesis syndrome in addition to dehydration and poor o ral intake. The patient was also counseled regarding the use of alcohol and tobacco products as this may exacerbate her abdominal symptoms and potential gastritis. The patient overall remained clinica lly stable throughout the hospital course, stabilizing by the time of discharge. I have examined the patient at the time of discharge and discussed followup instructions, at which point the patient shahid balized understanding and agreement. The patient overall clinically stable and ready for discharge o n 03/19/2018. DISCHARGE MEDICATIONS: 1. BuSpar 15 mg p.o. b.i.d. 2. Calcium carbonate with vitamin D 1 tablet p.o. b.i.d. 3. Lactobacillus 1 capsule p.o. daily. 4. Multivitamin 1 tab p.o. daily. 5. Zofran ODT 4 mg p.o. q.6 hours p.r.n. nausea, vomiting. 6. Klor-Con 40 mEq p.o. b.i.d. x5 days. 7. Risperdal 3 mg p.o. b.i.d. 8. Zoloft 100 mg p.o. b.i.d. FOLLOWUP: The patient may follow up with [place], [place] within 5-7 days after discharge. CONDITION ON DISCHARGE: Stable. ACTIVITY: ad lauren. DIET: Regular. CODE STATUS: FULL. DISPOSITION: Home on 03/19/2018.
== END 2018-03-19 18:25 | disposition home or self-care (01) ==
LOC: ERS 21:01 → T4-A 03-18 01:55
PROVIDERS: ADMIT Internal Medicine; ATTEND Internal Medicine
DX: R11.2 Nausea with vomiting, unspecified (principal); E87.6 Hypokalemia; E86.0 Dehydration; R10.9 Unspecified abdominal pain; E87.1 Hypo-osmolality and hyponatremia; F17.210 Nicotine dependence, cigarettes, uncomplicated; F12.20 Cannabis dependence, uncomplicated; F10.20 Alcohol dependence, uncomplicated; Z79.899 Other long term (current) drug therapy
CPT/HCPCS: 36415; 74022; 80053; 83690; 83735; 84703; 85007; 85025; 85027; 93005; 96361; 96374; 96375; 96376; A4216; C9113; G0378; J2405; J2765; J3475; J3480

== ENCOUNTER 2018-05-21 05:08 | Inpatient (IN) | payer SELFPAY ==
[~2018-05-21 05:08] MED LIST changes: -ISOVUE-370 76%-LOCM 1 ML ONE; +NS 0.9% w/ 20 MEQ KCL 1,000 ML IV SCH
[2018-05-21 06:04] LABS: #Basophils 0.1 thou/uL (0.0-0.2); #Eosinphils 0.2 thou/uL (0.0-0.7); #Lymphocytes 1.9 thou/uL (1.20-3.40); #Monocytes 0.5 thou/uL (0.11-0.59); #Neutrophils 3.3 thou/uL (1.40-6.50); %Basophils 1.3 % (0.0-1.0); %Eosinophils 2.7 % (0.0-10.0); %Lymphocytes 31.5 % (21.0-51.0); %Monocytes 8.5 % (0.0-10.0); %Neutrophils 55.9 % (42.0-75.0); Hemoglobin 18.7 g/dL (12.0-16.0); Mean Corpuscular HGB CONC 33.4 g/dL (32.0-36.0); Mean Corpuscular Hemoglobin 32.4 pg (27.0-31.0); Mean Platelet Volume 6.8 fL (7.4-10.4); Platelet Count 286 thou/uL (130-400); RBC Distribution Width 13.7 % (11.5-14.5); Red Blood Cell (RBC) Count 5.79 mill/uL (4.20-5.40); White Blood Cell (WBC) Count 5.9 thou/uL (4.8-10.8)
[2018-05-21 06:24] LABS: Alcohol Less than 10 mg/dL (Less than 10); Salicylate Less than 8.0 mg/dL (15.0-30.0)
[2018-05-21 06:28] LABS: CKMB 0.3 ng/mL (0-6.6); Troponin I Less than 0.010 ng/mL (< 0.028)
[2018-05-21] MEDS ORDERED: Ondansetron HCl/PF 4 MG/2 ML Vial ONE (06:31)
[2018-05-21] MEDS ORDERED: Haloperidol Lactate 5 MG/ML VIAL ONE (06:31)
[2018-05-21] MEDS ORDERED: Lorazepam 2 MG/ML VIAL ONE (06:31)
[2018-05-21 06:34] LABS: BHCG - Serum Negative (NEGATIVE); Pregs Control Background? CLEAR/WHITE (CLR/WHITE); Pregs Control Bar Appear? YES (CONTROL BAR)
[2018-05-21 06:42] LABS: Bilirubin Moderate (Negative); Blood, Urine Small (Negative); Clarity CLOUDY (Clear); Glucose, Urine (Dipstick) Negative (Negative); Leukocyte Negative (Negative); Nitrite Negative (Negative); Protein, Urine (Dipstick) Negative (Neg-Trace); Specific Gravity, Urine 1.023 (1.002-1.036); Urobilinogen 0.2 mg/dL (0.2-1.0)
[2018-05-21 06:45] LABS: Bacteria/HPF 4+ HPF (None Seen); Hyaline Casts/LPF 7-10 HYALINE CAST LPF (0-3 Hyaline); Pathc Cast-AUWi Flag 1.88 (0-2.49)
[2018-05-21 06:52] LABS: Amphetamine Not Detected (NotDetected); Barbiturates Screen Not Detected (NotDetected); Benzodiazepine Screen Not Detected (NotDetected); Cocaine Metabolite Screen Not Detected (NotDetected); Medtox Control Line Valid? VALID (VALID); Medtox Reader # READER 1; Methadone Not Detected (NotDetected); Methamphetamine Not Detected (NotDetected); Opiate Screen Detected (NotDetected); Oxycodone Screen Not Detected (NotDetected); Phencyclidine (PCP) Not Detected (NotDetected); THC/Cannabinoid Screen Detected (NotDetected); Tricyclic Screen Not Detected (NotDetected)
[2018-05-21 07:21] LABS: ALT (SGPT) 24 U/L (8-55); AST (SGOT) 20 U/L (5-34); Albumin 3.7 g/dL (3.5-5.0); Alkaline Phosphatase 62 U/L (40-150); Anion Gap 17 mmol/L (10-20); BUN (Urea Nitrogen) 7 mg/dL (7.0-18.7); Bilirubin, Total 0.6 mg/dL (0.2-1.2); CK (CPK) 13 U/L (29-168); Calc. Creatinine Clearance 0 mL/min (70-130); Carbon Dioxide 29 mmol/L (22-29); Chloride 90 mmol/L (98-107); Estimated GFR-MDRD Greater than 90; Glucose 94 mg/dL (70-105); Lipase 4 U/L (8-78); Protein, Total 6.7 g/dL (6.0-8.3); Sodium 134 mmol/L (136-145)
[2018-05-21] MEDS ORDERED: cefTRIAXone\\ROCEPHIN 1 GM VIAL ONE (07:35)
[2018-05-21 07:57] LABS: Potassium 2.2 mmol/L (3.5-5.1)
[2018-05-21] MEDS ORDERED: Potassium Chloride 20 MEQ TAB ONE (08:34)
--- NOTE | 2018-05-21 08:37 | RAD ---
CHEST ONE VIEW: HISTORY: Nausea and vomiting. COMPARISON: 12/01/2017 FINDINGS: Normal cardiac silhouette. The pulmonary vessels and hilum are normal. The costophrenic angles are clear. No consolidation or mass. No pneumothorax or osseous abnormalities. IMPRESSION: No acute cardiopulmonary process. POS: [facility]
[2018-05-21 10:15] VITALS: BMI 16.8
[2018-05-21] MEDS ORDERED: Bisacodyl 5 MG TAB PO PRN (10:46)
[2018-05-21] MEDS ORDERED: Acetaminophen 650 MG Suppository PR PRN (10:46)
[2018-05-21] MEDS ORDERED: Acetaminophen 325 MG TAB PO PRN (10:46)
[2018-05-21] MEDS ORDERED: NS 0.9% w/ 40 MEQ KCL 1,000 ML IV SCH (11:00)
[2018-05-21] MEDS: Nicotine 21 MG PATCH TD SCH (11:38)
[2018-05-21] MEDS: Potassium Chloride 20 MEQ TAB PO SCH ×3 (11:38→18:03)
[2018-05-21] MEDS ORDERED: Potassium Chloride 20 MEQ TAB PO SCH (13:00)
[2018-05-21 13:41] LABS: Anion Gap 11 mmol/L (10-20); BUN (Urea Nitrogen) 5 mg/dL (7.0-18.7); Calc. Creatinine Clearance 86 mL/min (70-130); Calcium 8.8 mg/dL (7.8-10.44); Carbon Dioxide 33 mmol/L (22-29); Chloride 98 mmol/L (98-107); Estimated GFR-MDRD Greater than 90; Glucose 71 mg/dL (70-105); Potassium 3.3 mmol/L (3.5-5.1); Sodium 139 mmol/L (136-145)
[2018-05-21] MEDS: Sodium Chloride 0.9% 1,000 ML IV SCH (14:21)
--- NOTE | 2018-05-21 17:04 | HP ---
PRIMARY CARE PROVIDER: None. CHIEF COMPLAINT: Nausea and vomiting. HISTORY OF PRESENT ILLNESS: Mr. Lemus is a pleasant 37-year-old lady who was seen at [facility] on 05/21/2018. She reports that she developed nausea and vomiting 2 or 3 days ago. She reports vomiting multiple times every day. She was hospitalized at this facility in March of this year for similar complaints. She denies any chest pain. She denies any shortness of breath. She denies any diarrhea. She denies any abdominal pain. She presented to the emergency room mainly because of nausea and vomiting. She also reports generalized weakness which has improved after she came to the emergency room. She also reports poor oral intake secondary to nausea and vomiting. REVIEW OF SYSTEMS: All other systems reviewed and found to be negative. PAST MEDICAL HISTORY: None. PAST SURGICAL HISTORY: [place] teeth removal. PSYCHIATRIC HISTORY: Anxiety and bipolar disorder. SOCIAL HISTORY: The patient reports alcohol use over the weekends. She smokes 1 pack of cigarettes a day. She uses marijuana occasionally. Her last marijuana use was 2 days ago. FAMILY HISTORY: Cerebrovascular accident in her maternal grandfather. ALLERGIES: No known drug allergies. CURRENT MEDICATIONS: Buspirone 15 mg 2 times a day, calcium carbonate plus vitamin D one tablet 2 times a day, probiotic capsule 1 capsule daily, multivitamins 1 tablet daily, Risperdal 3 mg 2 times a day, and sertraline 100 mg 2 times a day. PHYSICAL EXAMINATION: GENERAL: Ms. Lemus is awake and alert, not in acute distress. She appears malnourished, with a body mass index of 16.9. VITAL SIGNS: Blood pressure is 99/54, pulse 92, respiratory rate 18, and oxygen saturation 98% on room air. She is afebrile. EYES: No scleral icterus. No conjunctival pallor. ENT: Dry mucosal membranes, no oropharyngeal erythema or exudates. NECK: Supple, nontender. Trachea is midline. RESPIRATORY: Accessory muscles of breathing are not active. Chest wall movements are symmetric bilaterally. LUNGS: Clear to auscultation without wheeze, rhonchi or crepitations. CARDIOVASCULAR: S1 and S2 are heard, regular. Peripheral pulses palpable. No carotid bruit, no pericardial rub. ABDOMEN: Soft, nontender, bowel sounds are heard, no hepatomegaly, no splenomegaly. NEUROLOGIC: Cranial nerves II-XII intact, deep tendon reflexes are 2+. MUSCULOSKELETAL: Power is 5/5 in all 4 extremities. SKIN: No rashes or subcutaneous nodules. LYMPHATIC: No cervical lymphadenopathy. PSYCHIATRIC: Normal mood, normal affect, patient is oriented to person, place, and time. LABORATORY DATA: Ms. Lemus's labs and investigations were reviewed. I reviewed her electrocardiogram, which shows sinus tachycardia, no ST changes to suggest an acute coronary syndrome. I also reviewed her chest x-ray, which does not show any pulmonary infiltrates. She has normal white count, elevated hemoglobin of 18.7, normal platelet count, sodium 134, potassium 2.2, normal creatinine, unremarkable liver profile, low lipase of 4, negative serum test. Urinalysis positive for ketones, blood, bilirubin, 4-6 wbc's, and urine bacteria, but negative for leukocyte esterase and negative for nitrite and urine toxicology screen that is positive for opiates and cannabinoids. ASSESSMENT AND PLAN: Mr. Lemus is a pleasant 37-year-old lady who was seen at [facility] on 05/21/2018. Her problem list includes: 1. Dehydration. The patient is presenting with dehydration. She will be admitted to the hospital for intravenous hydration and for further management. Dehydration most likely secondary to nausea and vomiting. 2. Nausea and vomiting: Etiology is unclear, could be related to viral gastroenteritis or secondary to her marijuana use. She actually reports that her nausea has improved since she came to the emergency room. We will trial clear fluid diet. 3. Hypokalemia: The patient is presenting with low potassium. Potassium will be replaced and rechecked. 4. Tobacco abuse: The patient has been counseled regarding tobacco cessation. We will start nicotine replacement therapy. 5. Marijuana use: The patient has been counseled regarding marijuana cessation. 6. Anxiety and bipolar disorder: We will continue her home medications. LEVEL OF RISK: High. LEVEL OF COMPLEXITY: High. MTDD
[2018-05-21] MEDS: Calcium Carbonate + Vit D 1 TAB PO SCH (18:03)
[2018-05-21] MEDS: busPIRone HCl 10 MG TAB PO SCH (22:17)
[2018-05-21] MEDS: risperiDONE 3 MG TAB PO SCH (22:18)
[2018-05-22] MEDS: Sodium Chloride 0.9% 1,000 ML IV SCH (04:34)
[2018-05-22 06:24] LABS: #Basophils 0.1 thou/uL (0.0-0.2); #Eosinphils 0.2 thou/uL (0.0-0.7); #Lymphocytes 1.9 thou/uL (1.20-3.40); #Monocytes 0.4 thou/uL (0.11-0.59); %Basophils 1.1 % (0.0-1.0); %Eosinophils 5.4 % (0.0-10.0); %Lymphocytes 42.1 % (21.0-51.0); %Monocytes 7.7 % (0.0-10.0); %Neutrophils 43.7 % (42.0-75.0); Hemoglobin 14.8 g/dL (12.0-16.0); Mean Corpuscular Hemoglobin 33.3 pg (27.0-31.0); Mean Platelet Volume 7.2 fL (7.4-10.4); Platelet Count 220 thou/uL (130-400); RBC Distribution Width 13.9 % (11.5-14.5); Red Blood Cell (RBC) Count 4.44 mill/uL (4.20-5.40); White Blood Cell (WBC) Count 4.6 thou/uL (4.8-10.8)
[2018-05-22 06:29] LABS: Anion Gap 12 mmol/L (10-20); BUN (Urea Nitrogen) 4 mg/dL (7.0-18.7); Calc. Creatinine Clearance 96 mL/min (70-130); Calcium 8.8 mg/dL (7.8-10.44); Carbon Dioxide 17 mmol/L (22-29); Chloride 112 mmol/L (98-107); Estimated GFR-MDRD Greater than 90; Glucose 74 mg/dL (70-105); Potassium 4.4 mmol/L (3.5-5.1); Sodium 137 mmol/L (136-145)
[2018-05-22] MEDS: busPIRone HCl 10 MG TAB PO SCH (08:45)
[2018-05-22] MEDS: Calcium Carbonate + Vit D 1 TAB PO SCH (08:45)
[2018-05-22] MEDS ORDERED: Multivit, Therapeutic 1 TAB PO SCH (09:00)
[2018-05-22] MEDS ORDERED: Lactinex Tablet PO SCH (09:00)
[2018-05-22] MEDS ORDERED: Enoxaparin Sodium 40 MG/0.4 ML SYRINGE SC SCH (09:00)
[2018-05-22] MEDS: risperiDONE 3 MG TAB PO SCH (10:18)
[2018-05-22 11:42] VITALS: TEMP 98.6
--- NOTE | 2018-05-22 12:42 | DIS ---
DATE OF ADMISSION: 05/21/2018 DATE OF DISCHARGE: 05/22/2018 PRIMARY CARE PROVIDER: None. DISCHARGE DIAGNOSES: 1. Hypokalemia. 2. Dehydration. 3. Nausea and vomiting. CONDITION OF PATIENT ON THE DAY OF DISCHARGE: Stable. I assessed Ms. Lemus on the day of disc harge. She denies any chest pain or shortness of breath. Vital signs are stable. S1 and S2 are hea rd, regular. Lungs are clear to auscultation bilaterally. HOSPITAL COURSE: Ms. Lemus is a pleasant 37-year-old lady who was admitted to [facility] on 05/22/2018 for hypokalemia, nausea, and vomiting. She improved with intravenous fluids. Potassium was also replaced and normalized to 4.4 on the day of discharge, up from 2.2 at t he time of admission. She also had mild hyponatremia at the time of admission, 134, which improved t o 137 on the day of discharge. She has been advised to stop tobacco and marijuana use. She is being discharged home in a stable con dition. DISCHARGE DESTINATION: Home. TOTAL AMOUNT OF TIME SPENT COORDINATING THIS DISCHARGE: 33 minutes.
[2018-05-22] MEDS: Nicotine 21 MG PATCH TD SCH (13:54)
[2018-05-22 15:56] VITALS: BP 113/71
--- NOTE | 2018-05-24 17:59 | EKG ---
Test Reason : Blood Pressure : / mmHG Vent. Rate : 113 BPM Atrial Rate : 113 BPM P-R Int : 160 ms QRS Dur : 076 ms QT Int : 342 ms P-R-T Axes : 073 079 026 degrees QTc Int : 469 ms Sinus tachycardia Possible Left atrial enlargement Cannot rule out Inferior infarct , age undetermined Abnormal ECG Confirmed by AGUILA ALMONTE, EPI ([id number]), fashion editor ALEXUS SIERRA ([id number]) on 05/24/2018 5:59:22 PM Referred By: Confirmed By:EPI SHEEHAN MD
== END 2018-05-22 15:50 | disposition home or self-care (01) | DRG 641 ==
LOC: ERS 05:08 → ERHOLD 08:36 → 2SE 09:28
PROVIDERS: ADMIT Internal Medicine; ATTEND Internal Medicine
DX: E87.6 Hypokalemia (principal); F30.9 Manic episode, unspecified; F41.9 Anxiety disorder, unspecified; E87.1 Hypo-osmolality and hyponatremia; F17.210 Nicotine dependence, cigarettes, uncomplicated; F12.90 Cannabis use, unspecified, uncomplicated; E86.0 Dehydration
CPT/HCPCS: 36415; 71045; 80048; 80053; 80306; 80307; 81003; 81015; 82550; 82553; 83690; 84484; 84703; 85025; 87077; 87086; 87186; 93005; 96361; 96365; 96375; A4216; J0696; J1630; J1650; J2060; J2405

== ENCOUNTER 2022-10-29 13:46 | Emergency (ER) | payer SELFPAY ==
[2022-10-29 15:00] LABS: BHCG - Serum Negative (NEGATIVE); Pregs Control Background? CLEAR/WHITE (CLR/WHITE); Pregs Control Bar Appear? YES (CONTROL BAR)
[2022-10-29 15:08] LABS: Amphetamine Not Detected (NotDetected); Barbiturates Screen Not Detected (NotDetected); Benzodiazepine Screen Not Detected (NotDetected); Cocaine Metabolite Screen Not Detected (NotDetected); Methadone Not Detected (NotDetected); Methamphetamine Not Detected (NotDetected); Opiate Screen Not Detected (NotDetected); Oxycodone Screen Not Detected (NotDetected); Phencyclidine (PCP) Not Detected (NotDetected); THC/Cannabinoid Screen Detected (NotDetected); Tricyclic Screen Not Detected (NotDetected)
[2022-10-29 15:10] LABS: ALT (SGPT) 154 U/L (8-55); AST (SGOT) 130 U/L (5-34); Albumin 4.8 g/dL (3.5-5.0); Alkaline Phosphatase 68 U/L (40-110); Anion Gap 15 mmol/L (10-20); BUN (Urea Nitrogen) Less than 4 mg/dL (7.0-18.7); Bilirubin, Total 0.4 mg/dL (0.2-1.2); Calc. Creatinine Clearance 0 mL/min (70-130); Calcium 9.8 mg/dL (7.8-10.44); Carbon Dioxide 26 mmol/L (22-29); Chloride 104 mmol/L (98-107); Estimated GFR 112; Globulin 3.2 g/dL (2.4-3.5); Glucose 96 mg/dL (70-105); Lipase 16 U/L (8-78); Potassium 3.7 mmol/L (3.5-5.1); Sodium 141 mmol/L (136-145)
[2022-10-29 15:12] LABS: INR-International Normal Ratio 0.8; Prothrombin Time 11.8 sec (12.0-14.7)
[2022-10-29 15:13] LABS: PTT 31.5 sec (22.9-36.1)
[2022-10-29 15:19] LABS: #Basophils 0.1 thou/uL (0.0-0.2); #Eosinphils 0.6 thou/uL (0.0-0.7); #Lymphocytes 2.3 thou/uL (1.20-3.40); #Monocytes 0.4 thou/uL (0.11-0.59); #Neutrophils 2.7 thou/uL (1.40-6.50); %Basophils 1.1 % (0.0-1.0); %Eosinophils 10.6 % (0.0-10.0); %Lymphocytes 37.3 % (21.0-51.0); %Monocytes 6.2 % (0.0-10.0); %Neutrophils 44.8 % (42.0-75.0); Hemoglobin 15.6 g/dL (12.0-16.0); Mean Corpuscular HGB CONC 34.1 g/dL (32.0-36.0); Mean Corpuscular Hemoglobin 36.1 pg (27.0-31.0); Mean Platelet Volume 6.4 fL (7.4-10.4); Platelet Count 322 10x3/uL (130-400); RBC Distribution Width 11.6 % (11.5-14.5); Red Blood Cell (RBC) Count 4.31 mill/uL (4.20-5.40); White Blood Cell (WBC) Count 6.1 10x3/uL (4.8-10.8)
== END 2022-10-29 17:20 | disposition home or self-care (01) ==
LOC: ERS 13:46
DX: R07.89 Other chest pain (principal); F17.210 Nicotine dependence, cigarettes, uncomplicated
CPT/HCPCS: 70450; 71045; 80053; 80306; 82140; 83690; 84484; 84703; 85025; 85610; 85730; 93005